=== PATIENT | female | born 1975 | race Caucasian/White ===

== ENCOUNTER 2017-11-12 10:36 | Inpatient (IN) | payer MEDICARE ==
[2017-11-12 11:38] LABS: Mean Corpuscular HGB CONC 29.7 g/dL (32.0-36.0); Mean Corpuscular Hemoglobin 21.4 pg (27.0-31.0); Mean Corpuscular Volume 71.9 fl (81.0-99.0); Mean Platelet Volume 8.3 fL (7.4-10.4); Platelet Count 494 thou/uL (130-400); RBC Distribution Width 18.6 % (11.5-14.5); Red Blood Cell (RBC) Count 4.67 mill/uL (4.20-5.40); White Blood Cell (WBC) Count 8.4 thou/uL (4.8-10.8)
[2017-11-12 11:57] LABS: #Basophils 0.1 thou/uL (0.0-0.2); #Eosinphils 0.2 thou/uL (0.0-0.7); #Monocytes 0.3 thou/uL (0.11-0.59); #Neutrophils 5.8 thou/uL (1.40-6.50); %Basophils 0.7 % (0.0-1.0); %Eosinophils 2.6 % (0.0-10.0); %Lymphocytes 23.9 % (21.0-51.0); %Monocytes 3.2 % (0.0-10.0); %Neutrophils 69.6 % (42.0-75.0); Anisocytosis SLIGHT = 6-15 cells (100X) (0-5/hpf); Hypochromia SLIGHT = 6-15 cells (100X) (0-5/hpf); MDiff Complete? YES; Microcytosis SLIGHT = 6-15 cells (100X) (0-5/hpf); PLT Morphology Comment Appears Increased; Polychromasia SLIGHT = 2-3 cells (100X) (0-2/hpf)
[2017-11-12 11:59] LABS: Lactic Acid 1.2 mmol/L (0.5-2.2)
[2017-11-12 12:13] LABS: ALT (SGPT) 13 U/L (8-55); AST (SGOT) 12 U/L (5-34); Albumin 3.5 g/dL (3.5-5.0); Alkaline Phosphatase 100 U/L (40-150); Anion Gap 11 mmol/L (10-20); BUN (Urea Nitrogen) 9 mg/dL (7.0-18.7); Bilirubin, Total Less than 0.2 mg/dL (0.2-1.2); Calc. Creatinine Clearance 0 mL/min (70-130); Calcium 8.3 mg/dL (7.8-10.44); Carbon Dioxide 27 mmol/L (22-29); Chloride 105 mmol/L (98-107); Estimated GFR-MDRD Greater than 90; Globulin 4.1 g/dL (2.4-3.5); Glucose 105 mg/dL (70-105); Potassium 3.2 mmol/L (3.5-5.1); Protein, Total 7.6 g/dL (6.0-8.3); Sodium 140 mmol/L (136-145)
--- NOTE | 2017-11-12 12:14 | RAD ---
RIGHT FEMUR TWO VIEWS: HISTORY: Skin infection and stage III ulcer to the right side of the buttocks. COMPARISON: None. FINDINGS: Two views of the right femur show no evidence of acute fracture or dislocation. No osseous erosions are seen. Diffuse soft tissue swelling is seen. IMPRESSION: No evidence of acute osseous abnormality of the right femur. POS: BENJAMIN
[2017-11-12] MEDS ORDERED: Morphine 4 MG/ML VIAL ONE (12:47)
[2017-11-12] MEDS ORDERED: Bisacodyl 5 MG TAB PO PRN (13:48)
[2017-11-12] MEDS ORDERED: Vancomycin HCl 1 GM in Premix Bag 1 BAG IVPB SCH ×2 (14:00→16:15)
[2017-11-12] MEDS ORDERED: Clindamycin/D5W 600 mg/50 ml Premix Bag ONE (14:16)
--- NOTE | 2017-11-12 14:40 | HP ---
PRIMARY CARE PROVIDER: Vaibhav Jean M.D. CHIEF COMPLAINT: Wound. HISTORY OF PRESENT ILLNESS: Ms. Frank is a pleasant 42-year-old lady who was seen at [facility] on 11/12/2017. She reports that over the last 2 weeks she has had swelling, rednes s, pain and skin breakdown over the posterior aspect of the right thigh. She denies any fevers. She denies any chills. She denies any nausea, vomiting or diarrhea. She came to the emergency room mainly because of skin redness and skin wound. REVIEW OF SYSTEMS: All other systems reviewed and noted to be negative. PAST MEDICAL HISTORY: HIV infection, coronary artery disease, multiple decubitus ulcerations, hypert ension, morbid obesity, moderate persistent asthma, anxiety, and bipolar disorder. PAST SURGICAL HISTORY: Left below knee amputation secondary to osteomyelitis after an accident, cesa rean section x2 and cholecystectomy. ALLERGIES: KEFLEX, IRON, FOLIC ACID, INFLUENZA VACCINE, ACYCLOVIR and VITAMINS. CURRENT MEDICATIONS: Lyrica 100 mg 2 times a day, Atripla 1 tablet daily, ProAir HFA 90 mcg daily, A dvair Diskus 1 puff b.i.d., Prozac 10 mg daily, Flexeril 10 mg daily, [place] p.r.n., aspirin 325 mg da juanito, metoprolol tartrate 50 mg 2 times a day, Plavix 75 mg daily, Lipitor 20 mg daily. FAMILY HISTORY: Significant for cardiac disease on her maternal side. SOCIAL HISTORY: The patient smokes 1 pack of cigarettes a day. She denies alcohol use or recreation al drug use. PHYSICAL EXAMINATION: GENERAL: Ms. Frank is awake and alert, not in acute distress. She is morbidly obese. She is afebril e. Blood pressure is 118/96, pulse is 72, she is breathing at rate of 16, saturating 96% on room air . EYES: No scleral icterus. No conjunctival pallor. ENT: Moist mucosal membranes, no oropharyngeal erythema or exudates. NECK: Supple, nontender, normal range of movement. Trachea is midline. RESPIRATORY: Accessory muscles of breathing are not active. Chest wall movements are symmetric bila terally. LUNGS: Clear to auscultation, without wheeze, rhonchi or crepitations. CARDIOVASCULAR: S1 and S2 are heard, regular. Peripheral pulses palpable. No carotid bruit, no per icardial rub. ABDOMEN: Soft, distended, nontender, bowel sounds heard. NEUROLOGIC: Cranial nerves II-XII intact. MUSCULOSKELETAL: She is status post left BKA. Moving all 4 extremities. SKIN: She has 16 x 8 cm area of erythema, warmth, and induration to posterior aspect of the right up per thigh. There is also a 3 x 2 central unstageable ulcer with tunneling present as well as a small er stage II ulcer. LYMPHATIC: No cervical lymphadenopathy. PSYCHIATRIC: Normal mood, normal affect, patient is oriented to person, place, and time. LABORATORY DATA: Ms. Frank's labs and investigations were reviewed. She had x-ray of the right femur , which did not show any fracture or dislocation. She had diffuse soft tissue swelling on the x-ray. She has normal white count, microcytic anemia with hemoglobin 10, elevated platelet count of 494,00 0, normal sodium decreased potassium of 3.2, normal creatinine and an unremarkable liver profile. La ctic acid is normal. ASSESSMENT AND PLAN: Ms. Frank is a pleasant 42-year-old lady who was seen at [facility] on 11/12/2017. Her problem list includes: 1. Wound infection: Patient will be started on antibiotics and admitted to the hospital. She is re ceiving vancomycin and Zosyn in the emergency room, which I will continue. Infectious Disease servic e will be consulted for help with further management. 2. Hypokalemia: Replace potassium. 3. Human immunodeficiency virus infection: Patient reports that her human immunodeficiency virus in fection is controlled. She will continue her home medications during this hospitalization. 4. Asthma: Stable. 5. Thrombocythemia: Likely reactive to anemia. We will follow platelet counts. Many thanks for allowing me to participate in your patient's care. Please feel free to contact me wi th any questions or concerns. LEVEL OF RISK: Moderate. LEVEL OF COMPLEXITY: Moderate.
[2017-11-12 17:07] VITALS: BMI 51.2
[2017-11-12] MEDS: Acetaminophen 325 MG TAB PO PRN ×2 (17:22→21:11)
[2017-11-12] MEDS: Morphine 4 MG/ML VIAL SLOW IVP PRN ×2 (17:22→23:38)
[2017-11-12] MEDS: Nicotine 21 MG PATCH TD SCH (17:29)
[2017-11-12] MEDS ORDERED: Piperacillin/Tazobactam 4.5 GM in Sodium Chloride 0.9% 100 ML IVPB SCH (18:00)
[2017-11-12] MEDS ORDERED: diphenhydrAMINE 50 MG/ML VIAL ONE (18:33)
--- NOTE | 2017-11-12 19:40 | CON ---
DATE OF CONSULTATION: 11/12/2017 REASON FOR CONSULTATION: Decubitus ulcer and fever, HIV positive patient. HISTORY OF PRESENT ILLNESS: A 42-year-old known to us from multiple previous hospital and clinic visits, who has a longstanding history of HIV seropositive status with excellent compliance with antiretroviral therapy, last saw her in December last year when she came in with cellulitis in the thigh area in the right foot and now she came in because of fever and newly developed tunneling pressure ulceration of the right ischial region, some cough. No headaches, no visual symptoms. No dyspnea or chest pain. No abdominal pain or diarrhea. The left BKA stump amputation site ulcer has completely healed. PAST MEDICAL HISTORY: The medical history includes longstanding HIV infection, well controlled and has not had a CD4 cell count in a while. She has transportation difficulty, but takes her medications with excellent compliance; left BKA following complications of left foot infection with necrotizing features and a chronic ulcer at the tip of the left BKA, which finally healed after extensive management; also decubitus ulcer in the gluteal region which I feel in the past; asthma; benign spinal tumor; UTIs of prior episode of invasive UTI. PAST SURGICAL HISTORY: Cholecystectomy, bipolar disorder and the above surgeries. SOCIAL HISTORY: Positive smoking, still smoking a pack a day, used to live in [place], but has moved to [place], close to family. CURRENT MEDICATIONS: Atripla, Lyrica, ProAir HFA, Advair Diskus, Prozac, Flexeril, [place], aspirin, metoprolol, Plavix, and Lipitor. ALLERGIES: ACYCLOVIR, CEPHALEXIN, FOLIC ACID. FAMILY HISTORY: Currently includes coronary disease. PHYSICAL EXAMINATION: GENERAL: Pleasant as usual. VITAL SIGNS: Temperature 98.7, blood pressure 130/70, pulse 82, respirations 14. SKIN: Shows the tunneling narrow pressure ulceration in the right side of the shoulder region with no erythema. I was able to probe down to about 8 cm. I could not feel any bone at the end of this tunnel. Sample was submitted for cultures from the area. No other skin lesions noticeable except for shallow abrasion distal to this tunneling ulcer. No lymphadenopathy. HEENT: Ocular movements conjugate. Oral cavity moist, quite a few teeth in place with quite a bit of decay and gum disease. NECK: Supple. No jugular vein distention or carotid bruits. LUNGS: With symmetric clear breath sounds. HEART: S1, S2, regular rate. No murmurs. No S3 or S4. ABDOMEN: Soft, not distended or tender. No ascites. No bladder distention. Perineal examination was normal. Vascular supply to the lower extremities appears normal. NEUROLOGIC: Cognitive function appears to be intact. She moves all extremities with no limitations. LABORATORY: White cell count 8.4, hemoglobin 10, platelets 494 with a normal differential. Sodium 140, potassium of 3.2, creatinine 0.67. Liver profile normal. Albumin 3.5. The gluteal region culture with positive cocci in pairs, negative rods and gram-positive rods. ASSESSMENT: 1. Longstanding human immunodeficiency virus infection with previous excellent adherence to antiretroviral therapy specifically Atripla. 2. Multiple prior episodes of decubitus ulcerations related to her mobility limitation now with a new one in the right ischial region, which is tunneling. DISCUSSION: I could not palpate any bone. No cellulitis is present, but she has had fever, but will go ahead and stage this ulcer with an MRI of the pelvis. She may require just wound care. If there is osteomyelitis and may have to consult Surgery for debridement, broad-spectrum antimicrobial therapy which would have to be administered for a longer period of time. Recheck CD4 cell count and viral load to restage her HIV infection. DANO
[2017-11-12] MEDS ORDERED: diphenhydrAMINE 25 MG CAP PO PRN (20:53)
[2017-11-12] MEDS ORDERED: PROVENTIL INHALER 6.7 G (200 INHALATIONS) INH PRN (20:58)
[2017-11-12] MEDS ORDERED: Cyclobenzaprine 10 MG TAB PO PRN (20:59)
[2017-11-12] MEDS ORDERED: Lorazepam 1 MG TAB PO PRN (21:00)
[2017-11-12] MEDS ORDERED: Lidocaine 2% Jelly 5 ML TUBE TOP PRN (21:01)
[2017-11-12] MEDS ORDERED: Mometasone/Formoterol 120 PUFF INHALER INH PRN (21:02)
[2017-11-12] MEDS: Atorvastatin Calcium 40 MG TAB PO SCH (21:07)
[2017-11-12] MEDS: Pregabalin 50 MG CAP PO SCH (21:10)
[2017-11-12] MEDS ORDERED: EMTRICITABINE PO SCH (21:30)
[2017-11-12] MEDS ORDERED: EFAVIRENZ PO SCH (21:30)
[2017-11-12] MEDS ORDERED: TENOFOVIR PO SCH (21:30)
[2017-11-13 06:04] LABS: Anion Gap 10 mmol/L (10-20); BUN (Urea Nitrogen) 5 mg/dL (7.0-18.7); Calc. Creatinine Clearance 237 mL/min (70-130); Calcium 7.8 mg/dL (7.8-10.44); Carbon Dioxide 25 mmol/L (22-29); Chloride 106 mmol/L (98-107); Estimated GFR-MDRD Greater than 90; Glucose 119 mg/dL (70-105); Potassium 3.1 mmol/L (3.5-5.1); Sodium 138 mmol/L (136-145)
[2017-11-13 06:07] LABS: Band 15 % (5-11); Eosinophils 3 % (0-10); Hemoglobin 9.6 g/dL (12.0-16.0); Lymphocytes 9 % (21-51); MDiff Complete? YES; Mean Corpuscular HGB CONC 30.2 g/dL (32.0-36.0); Mean Corpuscular Hemoglobin 21.6 pg (27.0-31.0); Mean Corpuscular Volume 71.7 fl (81.0-99.0); Mean Platelet Volume 8.7 fL (7.4-10.4); Monocytes 1 % (0-10); Neutrophil 72 % (42-75); PLT Morphology Comment Appears Increased; Platelet Count 452 thou/uL (130-400); RBC Distribution Width 18.8 % (11.5-14.5); Red Blood Cell (RBC) Count 4.41 mill/uL (4.20-5.40); White Blood Cell (WBC) Count 10.3 thou/uL (4.8-10.8)
[2017-11-13] MEDS: Pregabalin 50 MG CAP PO SCH ×2 (08:12→21:47)
[2017-11-13] MEDS: Acetaminophen/Codeine 30-300mg Tablet PO PRN (08:13)
[2017-11-13] MEDS: Clopidogrel Bisulfate 75 MG TAB PO SCH (08:14)
[2017-11-13] MEDS: FLUoxetine HCl 20 MG CAP PO SCH (08:14)
[2017-11-13] MEDS: Metoprolol Tartrate 25 MG TAB PO SCH (08:15)
[2017-11-13] MEDS: Enoxaparin Sodium 40 MG/0.4 ML SYRINGE SC SCH (08:15)
[2017-11-13] MEDS: Aspirin 325 MG TAB PO SCH (08:15)
[2017-11-13] MEDS ORDERED: Prevnar 13-Val Conj/PF 0.5 ML SYRINGE IM ONE (09:00)
[2017-11-13] MEDS: Ketorolac Tromethamine 30 MG/ML VIAL IVP SCH ×3 (11:11→23:30)
[2017-11-13] MEDS: Potassium Chloride 20 MEQ TAB PO SCH ×2 (11:12→17:36)
--- NOTE | 2017-11-13 11:46 | PDOC.PN ---
- Subjective Encounter Start Date: 11/13/17 Encounter Start Time: 08:40 Pt seen for followup re: wound infection.; Denies chest pain, shortness of breath, fevers or chills. - Objective MAR Reviewed: Yes Vital Signs & Weight: Vital Signs (12 hours) Temp Pulse Resp BP Pulse Ox 11/13/17 08:17 98 F 100 16 95 11/13/17 07:36 98 F 100 16 118/71 95 11/13/17 03:59 98.7 F 102 H 18 95/57 L 94 L 11/12/17 23:56 98.7 F 111 H 18 105/64 93 L I&O: 11/12/17 11/13/17 11/14/17 06:59 06:59 06:59 Intake Total 510 Balance 510 Result Diagrams: 11/13/17 05:21 11/13/17 05:21 Phys Exam - Physical Examination Morbid obesity HEENT: moist MMs, sclera anicteric, oral pharynx no lesions, 2+ tonsils Neck: no nodes, no JVD, supple, full ROM Respiratory: no wheezing, no rales, no rhonchi, clear to auscultation bilateral Cardiovascular: RRR, no rub S1, S2 Gastrointestinal: soft, non-tender, positive bowel sounds distention s/p L BKA Neurological: moves all 4 limbs Psychiatric: normal affect, A&O x 3 Deviation from normal: posterior R thigh wound Dx/Plan (1) Wound infection Code(s): T14.8XXA - OTHER INJURY OF UNSPECIFIED BODY REGION, INITIAL ENCOUNTER; L08.9 - LOCAL INFECTION OF THE SKIN AND SUBCUTANEOUS TISSUE, UNSP Status: Acute Comment: pt to have MRI to evaluate (2) Asthma Code(s): J45.909 - UNSPECIFIED ASTHMA, UNCOMPLICATED Status: Chronic Qualifiers: Asthma severity: mild intermittent Comment: stable (3) Dyslipidemia Code(s): E78.5 - HYPERLIPIDEMIA, UNSPECIFIED Status: Chronic Comment: stable (4) HIV (human immunodeficiency virus infection) Status: Chronic Comment: stable (5) Tobacco abuse Code(s): Z72.0 - TOBACCO USE Status: Chronic Comment: counseled re: tobacco cessation, pt is on nicotine replacement therapy (6) Morbid obesity with BMI of 50.0-59.9, adult Code(s): E66.01 - MORBID (SEVERE) OBESITY DUE TO EXCESS CALORIES; Z68.43 - BODY MASS INDEX (BMI) 50-59.9 , ADULT Status: Chronic - Plan * . Review of Systems - Review of Systems Respiratory: negative: Cough, Shortness of Breath, SOB with Excertion, Pleuritic Pain, Wheezing Cardiovascular: negative: chest pain, palpitations, orthopnea, paroxysmal nocturnal dyspnea, edema, light headedness Gastrointestinal: negative: Nausea, Vomiting, Abdominal Pain, Diarrhea, Constipation, Melena, Hematochezia Genitourinary: Incontinence. negative: Dysuria, Frequency, Hematuria, Retention Skin: negative: Rash, Lesions, Markie, Bruising - Medications/Allergies Allergies/Adverse Reactions: Allergies Allergy/AdvReac Type Severity Reaction Status Date / Time piperacillin [From Zosyn] Allergy Intermediate Verified 11/12/17 19:22 tazobactam [From Zosyn] Allergy Intermediate Verified 11/12/17 19:22 acyclovir Allergy Mild Verified 12/22/14 04:26 cephalexin monohydrate Allergy Mild Verified 12/22/14 04:26 [From Keflex] ferrous fumarate Allergy Mild Verified 12/22/14 04:26 [From 1 + Iron] folic acid Allergy Mild Verified 12/22/14 04:26 [From 1 + Iron] influenza virus vaccine, Allergy Mild Verified 12/22/14 04:26 specific [Influenza Virus Vacc,Specific] vit,tx Allergy Mild Verified 12/22/14 04:26 calc,iron,folic acd [From 1 + Iron] vitamins with Allergy Mild Verified 12/22/14 04:26 calcium [From 1 + Iron] Medications: Current Medications Acetaminophen (Tylenol) 650 mg PO Q4H PRN PRN Reason: Headache/Fever or Pain Last Admin: 11/12/17 21:11 Dose: 650 mg Acetaminophen/Codeine Phosphate (Tylenol #3) 2 tab PO BIDPRN PRN PRN Reason: Pain Last Admin: 11/13/17 08:13 Dose: 2 tab Albuterol Sulfate (Proventil Hfa) 2 puff INH Q6H PRN PRN Reason: SOB &/or Wheezing Aspirin (Aspirin) 325 mg PO DAILY [facility] Last Admin: 11/13/17 08:15 Dose: 325 mg Atorvastatin Calcium (Lipitor) 40 mg PO HS [facility] Last Admin: 11/12/17 21:07 Dose: Not Given Bisacodyl (Dulcolax) 10 mg PO DAILYPRN PRN PRN Reason: Constipation Clopidogrel Bisulfate (Plavix) 75 mg PO DAILY [facility] Last Admin: 11/13/17 08:14 Dose: 75 mg Cyclobenzaprine HCl (Flexeril) 5 mg PO BIDPRN PRN PRN Reason: Muscle Spasm Diphenhydramine HCl (Benadryl) 25 mg PO Q6H PRN PRN Reason: Itching Enoxaparin Sodium (Lovenox) 40 mg SC 0900 [facility] Last Admin: 11/13/17 08:15 Dose: Not Given Fluoxetine HCl (Prozac) 20 mg PO DAILY [facility] Last Admin: 11/13/17 08:14 Dose: 20 mg Ketorolac Tromethamine (Toradol) 15 mg IVP Q6HR [facility] Stop: 11/18/17 12:01 Last Admin: 11/13/17 11:11 Dose: 15 mg Lidocaine HCl (Xylocaine 2%) 0 ml TOP ASDIR PRN PRN Reason: Topical Irritations Lorazepam (Ativan) 1 mg PO BIDPRN PRN PRN Reason: Anxiety Metoprolol Tartrate (Lopressor) 25 mg PO DAILY [facility] Last Admin: 11/13/17 08:15 Dose: 25 mg Mometasone Furoate/Formoterol Fumar (Dulera 100 Mcg/5 Mcg Inhaler) 2 puff INH DAILYPRN PRN PRN Reason: . Morphine Sulfate (Morphine) 2 mg SLOW IVP Q6H PRN PRN Reason: Severe Pain (7-10) Last Admin: 11/12/17 23:38 Dose: 2 mg Nicotine (Nicoderm Patch) 21 mg TD Q24HR [facility] Last Admin: 11/12/17 17:29 Dose: 21 mg Efavirenz, Emtricitabine, Tenofovir [Atripla] Tablet 0 each PO HS [facility] Potassium Chloride (K-Dur) 40 meq PO Q6H [facility] Stop: 11/13/17 16:31 Last Admin: 11/13/17 11:12 Dose: 40 meq Pregabalin (Lyrica) 200 mg PO BID [facility] Last Admin: 11/13/17 08:12 Dose: 200 mg Sodium Chloride (Flush - Normal Saline) 10 ml IVF Q12HR [facility] Last Admin: 11/13/17 08:14 Dose: 10 ml Sodium Chloride (Flush - Normal Saline) 10 ml IVF PRN PRN PRN Reason: Saline Flush
[2017-11-13] MEDS: Nicotine 21 MG PATCH TD SCH (13:59)
[2017-11-13] MEDS: Morphine 4 MG/ML VIAL SLOW IVP PRN ×2 (13:59→21:47)
--- NOTE | 2017-11-13 15:52 | MRI ---
MRI PELVIS WITH AND WITHOUT CONTRAST 11/13/17 HISTORY: Stage IV decubitus ulcer fight ischial area. COMPARISON: Radiograph prior day as well as pelvic MRI from 2009. FINDINGS: BONES: There is complete erosion of the coccyx. There is erosions of the sacrum at S4 and S5 which is comple tely eroded. There is a sacral decubitus ulcer extending to the sacrum with only low grade periosteal reactive edema. No loss of signal on the T1 weighted sequence. There is also a large ulcer over the right ischium extending to the circumferential investing fascia with mild fascial thickening. There i s also edema and thickening of the medial fascia of the thigh on the right. No deep fascial thickenin g or edema. There is extensive muscular atrophy. There is complete atrophy of the gluteus muscles. There is atrop hy of the hamstring muscles. No loss of normal T1 signal on the T1 weighted sequence. IMPRESSION: 1. Large sacral decubitus ulcer with chronic complete erosion of the coccyx with little erosion of S4 and S5. This is chronic in nature and there is no evidence of acute osteomyelitis. 2. Large soft tissue defect of the right ischium without underlying osteomyelitis. There is mode rate right superficial fasciitis. No deep fasciitis. The defect has a gas filled sinus tract without drainage fluid collection. POS: OFF
[2017-11-13] MEDS ORDERED: cefTRIAXone\\ROCEPHIN 1 GM in Sodium Chloride 0.9% 100 ML IVPB SCH (16:30)
--- NOTE | 2017-11-13 16:50 | PRG ---
DATE OF SERVICE: 11/13/2017 SUBJECTIVE: Still having pain at the ischial site. No respiratory symptoms. No abdominal pain, no diarrhea. Voiding without difficulty. OBJECTIVE: VITAL SIGNS: Normal. CARDIOVASCULAR: S1 and S2, regular rate. LUNGS: Clear. ABDOMEN: Soft. The wound site is about the same. LABORATORY DATA: White cell count 10.3, hemoglobin 9.6, platelets 452. Chemistry is normal except f or low potassium. Culture from the ischial ulcer showed Proteus mirabilis and alpha-hemolytic strep. MRI showed the previous areas of destruction of the sacrum-coccygeal area, which had been treated a few years ago. That area of skin has healed completely. The right side of the ischial lesion has n o bone involvement. There is a little bit of fasciitis, which is superficial, but no abscess. The C D4 cell count and viral load are pending. ASSESSMENT AND DISCUSSION: Right ischial pressure ulceration without evidence of osteomyelitis, only superficial fasciitis. Await on culture results. Continue Rocephin. We will start Rocephin and th en transition to oral antimicrobial therapy either a third-generation cephalosporin or Augmentin plus ciprofloxacin depending on susceptibility results. Continue Atripla and follow up in the clinic.
[2017-11-13] MEDS: cefTRIAXone\\ROCEPHIN 1 GM, Syringe 0.4 ML in Sterile Water 9.6 ML SLOW IVP SCH (18:03)
[2017-11-13] MEDS: Atorvastatin Calcium 40 MG TAB PO SCH (21:48)
[2017-11-13] MEDS: TENOFOVIR PO SCH (21:49)
[2017-11-13] MEDS: EMTRICITABINE PO SCH (21:49)
[2017-11-13] MEDS: EFAVIRENZ PO SCH (21:49)
--- NOTE | 2017-11-14 03:21 | CON ---
DATE OF CONSULTATION: 11/13/2017 REASON FOR CONSULTATION: Decubitus ulcer. HISTORY: Ms. Frank is a 42-year-old woman with HIV, morbid obesity, and multiple decubitus wounds. S he came to the hospital because of increased tunneling at a right ischial decubitus ulcer. She state s that she has had a sore there for some time, but has just been placing ABD dressings to it. She rapp s noticed some drainage, but did not realize that there was any tunneling until her daughter came to check on her and noted that the wound extended for quite some distance under the surface of the skin. She denies any fevers or chills. She is fairly independent, although she does not ambulate. She h as had a below-knee amputation on the left due to osteomyelitis and does not have a prosthesis, but s he is able to transfer to her wheelchair and perform her activities of daily living. PAST MEDICAL HISTORY: HIV, which is controlled, she is compliant with her treatments and follows up with Dr. Brown; coronary artery disease; hypertension; morbid obesity; asthma; anxiety; and bipolar d isorder. PAST SURGICAL HISTORY: Cholecystectomy, , left below-knee amputation. ALLERGIES: She reports allergies to KEFLEX, IRON, FOLATE, FLU VACCINE, ACYCLOVIR, AND VITAM INS. FAMILY HISTORY: Heart disease. SOCIAL HISTORY: The patient does smoke, but does not use alcohol or illicit drugs. REVIEW OF SYSTEMS: Ten-system review of systems is negative except per HPI and the following. The p atient does report that she is somewhat short of breath and has not received her inhalers in the hosp ital. PHYSICAL EXAMINATION: VITAL SIGNS: The patient is afebrile. O2 sats are in the 90s on room air, heart rate in the 70s, re spirations 14-20, blood pressure low normal. GENERAL: Reveals a pleasant morbidly obese woman with a BMI of 51. She is able to turn independentl y in the bed and is in no acute distress. She is not flushed or toxic in appearance. She is not jau ndiced or icteric. HEENT: Unremarkable. NECK: Supple. She does not have any lymphadenopathy or thyroid nodules that I can appreciate. HEART: Regular in its rate and rhythm. LUNGS: She has diffuse expiratory greater than inspiratory wheezes bilaterally, but no crackles. ABDOMEN: Soft, nontender, and nondistended. EXTREMITIES: Warm and well perfused. Her BKA stump is well healed. She has a healed sacral decubit us ulcer with a rather deep crevice, but the skin appears to be intact. She has a right ischial decu bitus ulcer, which tunnels for approximately 6 cm under the skin. I do not feel any bone in the base of the wound, and the wound appears to be clean and granulating. NEUROLOGIC: No focal deficits. PSYCHIATRIC: Alert, oriented, and appropriate. LABORATORY DATA: White count is normal at 10.3, hematocrit is low at 31, platelets are 452. Electro lytes are unremarkable except for a slightly low potassium of 3.1. Albumin is normal at 3.5. ASSESSMENT: Chronic right ischial decubitus ulcer. Dr. Brown has ordered an MRI, which has not yet been performed right at the time that I saw the patient. I will review this result when it is availa ble; however, at this point, I doubt there is any indication for a surgical debridement since there i s not any palpable bone in the base of the wound. Even if she does have osteo, the treatment for thi s would likely be conservative with wound care and dressing changes. The wound care team has been pl acing Promogran and a silver-based dressing, and I think this is appropriate. If she does not exhibi t progress with this dressing change, then a VAC dressing would be indicated. Thanks very much for this consult. I will continue to follow her as an inpatient.
[2017-11-14 05:47] LABS: #Eosinphils 0.2 thou/uL (0.0-0.7); #Lymphocytes 1.4 thou/uL (1.20-3.40); #Monocytes 0.2 thou/uL (0.11-0.59); #Neutrophils 3.7 thou/uL (1.40-6.50); %Basophils 0.3 % (0.0-1.0); %Eosinophils 4.2 % (0.0-10.0); %Lymphocytes 25.8 % (21.0-51.0); %Monocytes 3.9 % (0.0-10.0); %Neutrophils 65.8 % (42.0-75.0); Hemoglobin 9.2 g/dL (12.0-16.0); Mean Corpuscular HGB CONC 27.9 g/dL (32.0-36.0); Mean Corpuscular Hemoglobin 20.4 pg (27.0-31.0); Mean Corpuscular Volume 73.1 fl (81.0-99.0); Mean Platelet Volume 8.3 fL (7.4-10.4); Platelet Count 440 thou/uL (130-400); RBC Distribution Width 18.7 % (11.5-14.5); White Blood Cell (WBC) Count 5.6 thou/uL (4.8-10.8)
[2017-11-14 05:59] LABS: Anion Gap 12 mmol/L (10-20); BUN (Urea Nitrogen) 9 mg/dL (7.0-18.7); Calc. Creatinine Clearance 223 mL/min (70-130); Carbon Dioxide 23 mmol/L (22-29); Chloride 108 mmol/L (98-107); Estimated GFR-MDRD Greater than 90; Glucose 91 mg/dL (70-105); Potassium 3.9 mmol/L (3.5-5.1); Sodium 139 mmol/L (136-145)
[2017-11-14] MEDS: Ketorolac Tromethamine 30 MG/ML VIAL IVP SCH ×3 (06:08→18:39)
[2017-11-14] MEDS: Pregabalin 50 MG CAP PO SCH ×2 (08:32→21:18)
[2017-11-14] MEDS: Clopidogrel Bisulfate 75 MG TAB PO SCH (08:34)
[2017-11-14] MEDS: Aspirin 325 MG TAB PO SCH (08:35)
[2017-11-14] MEDS: Enoxaparin Sodium 40 MG/0.4 ML SYRINGE SC SCH (08:35)
[2017-11-14] MEDS: Metoprolol Tartrate 25 MG TAB PO SCH (08:35)
[2017-11-14] MEDS: FLUoxetine HCl 20 MG CAP PO SCH (08:35)
[2017-11-14] MEDS: Morphine 4 MG/ML VIAL SLOW IVP PRN (11:51)
--- NOTE | 2017-11-14 12:36 | PDOC.PN ---
- Subjective Encounter Start Date: 11/14/17 Encounter Start Time: 08:40 Pt seen for followup re: wound infection. Denies fevers or chills. No nausea, vomiting or diarrhea. - Objective Vital Signs & Weight: Vital Signs (12 hours) Temp Pulse Resp BP Pulse Ox 11/14/17 11:47 97.6 F 91 20 124/75 93 L 11/14/17 08:30 97.6 F 85 18 11/14/17 07:38 97.6 F 85 18 135/81 100 11/14/17 04:00 97.7 F 86 20 110/72 95 Weight Admit Weight 280 lb Weight 280 lb I&O: 11/13/17 11/14/17 11/15/17 06:59 06:59 06:59 Intake Total 510 Balance 510 Result Diagrams: 11/14/17 04:50 11/14/17 04:50 Phys Exam - Physical Examination Morbid obesity HEENT: moist MMs, sclera anicteric, oral pharynx no lesions, 2+ tonsils Neck: no nodes, no JVD, supple, full ROM Respiratory: no wheezing, no rales, no rhonchi, clear to auscultation bilateral Cardiovascular: RRR, no rub S1, S2 Gastrointestinal: soft, non-tender, positive bowel sounds distention Musculoskeletal: edema present s/p L BKA Neurological: moves all 4 limbs Psychiatric: normal affect, A&O x 3 Dx/Plan (1) Wound infection Code(s): T14.8XXA - OTHER INJURY OF UNSPECIFIED BODY REGION, INITIAL ENCOUNTER; L08.9 - LOCAL INFECTION OF THE SKIN AND SUBCUTANEOUS TISSUE, UNSP Status: Acute Comment: MRI result noted, no osteomyelitis, continue ceftriaxone (2) Asthma Code(s): J45.909 - UNSPECIFIED ASTHMA, UNCOMPLICATED Status: Chronic Qualifiers: Asthma severity: mild intermittent Comment: stable (3) Dyslipidemia Code(s): E78.5 - HYPERLIPIDEMIA, UNSPECIFIED Status: Chronic Comment: stable (4) HIV (human immunodeficiency virus infection) Status: Chronic Comment: stable (5) Tobacco abuse Code(s): Z72.0 - TOBACCO USE Status: Chronic Comment: continue nicotine replacement therapy (6) Morbid obesity with BMI of 50.0-59.9, adult Code(s): E66.01 - [place] (SEVERE) OBESITY DUE TO EXCESS CALORIES; Z68.43 - BODY MASS INDEX (BMI) 50-59.9 , ADULT Status: Chronic - Plan * . Review of Systems - Review of Systems Constitutional: negative: fever, chills, sweats, weakness, malaise Respiratory: negative: Cough, Shortness of Breath, SOB with Excertion, Pleuritic Pain, Wheezing Genitourinary: negative: Dysuria, Frequency, Incontinence, Hematuria, Retention Musculoskeletal: negative: Neck Pain, Shoulder Pain, Arm Pain, Back Pain, Hand Pain, Leg Pain, Foot Pain Skin: Rash. negative: Lesions, Markie, Bruising Neurological: negative: Weakness, Numbness, Incoordination, Change in Speech, Confusion, Seizures - Medications/Allergies Allergies/Adverse Reactions: Allergies Allergy/AdvReac Type Severity Reaction Status Date / Time piperacillin [From Zosyn] Allergy Intermediate Verified 11/12/17 19:22 tazobactam [From Zosyn] Allergy Intermediate Verified 11/12/17 19:22 acyclovir Allergy Mild Verified 12/22/14 04:26 cephalexin monohydrate Allergy Mild Verified 12/22/14 04:26 [From Keflex] ferrous fumarate Allergy Mild Verified 12/22/14 04:26 [From 1 + Iron] folic acid Allergy Mild Verified 12/22/14 04:26 [From 1 + Iron] influenza virus vaccine, Allergy Mild Verified 12/22/14 04:26 specific [Influenza Virus Vacc,Specific] vit,tx Allergy Mild Verified 12/22/14 04:26 calc,iron,folic acd [From 1 + Iron] vitamins with Allergy Mild Verified 12/22/14 04:26 calcium [From 1 + Iron] Medications: Current Medications Acetaminophen (Tylenol) 650 mg PO Q4H PRN PRN Reason: Headache/Fever or Pain Last Admin: 11/12/17 21:11 Dose: 650 mg Acetaminophen/Codeine Phosphate (Tylenol #3) 2 tab PO BIDPRN PRN PRN Reason: Pain Last Admin: 11/13/17 08:13 Dose: 2 tab Albuterol Sulfate (Proventil Hfa) 2 puff INH Q6H PRN PRN Reason: SOB &/or Wheezing Last Admin: 11/13/17 16:23 Dose: 2 puff Aspirin (Aspirin) 325 mg PO DAILY CAROL Last Admin: 11/14/17 08:35 Dose: 325 mg Atorvastatin Calcium (Lipitor) 40 mg PO HS [facility] Last Admin: 11/13/17 21:48 Dose: 40 mg Bisacodyl (Dulcolax) 10 mg PO DAILYPRN PRN PRN Reason: Constipation Clopidogrel Bisulfate (Plavix) 75 mg PO DAILY [facility] Last Admin: 11/14/17 08:34 Dose: 75 mg Cyclobenzaprine HCl (Flexeril) 5 mg PO BIDPRN PRN PRN Reason: Muscle Spasm Diphenhydramine HCl (Benadryl) 25 mg PO Q6H PRN PRN Reason: Itching Enoxaparin Sodium (Lovenox) 40 mg SC 0900 [facility] Last Admin: 11/14/17 08:35 Dose: Not Given Fluoxetine HCl (Prozac) 20 mg PO DAILY [facility] Last Admin: 11/14/17 08:35 Dose: 20 mg Ceftriaxone Sodium 1 gm/ (Syringe 0.4 ml/ Sterile Water) 10 mls @ 120 mls/hr SLOW IVP Q24HR@1700 [facility] Last Admin: 11/13/17 18:03 Dose: 10 mls Ketorolac Tromethamine (Toradol) 15 mg IVP Q6HR [facility] Stop: 11/18/17 12:01 Last Admin: 11/14/17 11:50 Dose: 15 mg Lidocaine HCl (Xylocaine 2%) 0 ml TOP ASDIR PRN PRN Reason: Topical Irritations Lorazepam (Ativan) 1 mg PO BIDPRN PRN PRN Reason: Anxiety Metoprolol Tartrate (Lopressor) 25 mg PO DAILY [facility] Last Admin: 11/14/17 08:35 Dose: 25 mg Mometasone Furoate/Formoterol Fumar (Dulera 100 Mcg/5 Mcg Inhaler) 2 puff INH DAILYPRN PRN PRN Reason: . Last Admin: 11/13/17 16:26 Dose: 2 puff Morphine Sulfate (Morphine) 2 mg SLOW IVP Q6H PRN PRN Reason: Severe Pain (7-10) Last Admin: 11/14/17 11:51 Dose: 2 mg Nicotine (Nicoderm Patch) 21 mg TD Q24HR [facility] Last Admin: 11/13/17 13:59 Dose: 21 mg Efavirenz, Emtricitabine, Tenofovir [Atripla] Tablet 0 each PO HS CAROL Last Admin: 11/13/17 21:49 Dose: 1 each Pregabalin (Lyrica) 200 mg PO BID CAROL Last Admin: 11/14/17 08:32 Dose: 200 mg Sodium Chloride (Flush - Normal Saline) 10 ml IVF Q12HR [facility] Last Admin: 11/14/17 08:35 Dose: 10 ml Sodium Chloride (Flush - Normal Saline) 10 ml IVF PRN PRN PRN Reason: Saline Flush Last Admin: 11/14/17 06:09 Dose: 10 ml
[2017-11-14 14:24] LABS: %CD4 (Helper/Inducer) 51.5 % (30.8-58.5); Absolute CD4 721 /uL (359-1519); Lymphocytes/Gated Cell Count 1.4 x10E3/uL (0.7-3.1); Total Lymphocyte 30 % (Not Estab.); WBC Total Count 4.6 x10E3/uL (3.4-10.8)
[2017-11-14] MEDS: Nicotine 21 MG PATCH TD SCH (15:02)
[2017-11-14] MEDS: cefTRIAXone\\ROCEPHIN 1 GM, Syringe 0.4 ML in Sterile Water 9.6 ML SLOW IVP SCH (16:52)
[2017-11-14] MEDS: Acetaminophen/Codeine 30-300mg Tablet PO PRN (16:52)
--- NOTE | 2017-11-14 16:56 | PDOC.GSPN ---
Surgery Progress Note: Subj - Subjective Narrative: MRI didn't show any osteomyelitis and clinically there is no exposed bone in the base of the wound. I recommend continuing with wound care as is currently being administered, either by home health or by a family member. She can follow up in the wound care clinic in a few weeks or in my office. I will sign off for now since the patient doesn't require any surgical debridement. Surgery Progress Note: Obj - Vital signs Vital signs: Vital Signs - Most Recent Temp Pulse Resp BP Pulse Ox 97.9 F 89 18 125/76 99 11/14/17 15:05 11/14/17 15:05 11/14/17 15:05 11/14/17 15:05 11/14/17 15:05 Surgery Progress Note: Results - Labs Result Diagrams: 11/14/17 04:50 11/14/17 04:50 Lab results: Laboratory Results - last 24 hr 11/12/17 11/14/17 11/14/17 18:41 04:50 04:50 WBC 5.6 RBC 4.50 Hgb 9.2 L Hct 32.9 L MCV 73.1 L MCH 20.4 L MCHC 27.9 L RDW 18.7 H Plt Count 440 H MPV 8.3 Neutrophils % 65.8 Neutrophils % (Manual) Not Reportable Lymphocytes % 25.8 Monocytes % 3.9 Eosinophils % 4.2 Basophils % 0.3 Neutrophils # 3.7 Lymphocytes # 1.4 Monocytes # 0.2 Eosinophils # 0.2 Basophils # 0.0 Nucleated RBCs TNP Sodium 139 Potassium 3.9 Chloride 108 H Carbon Dioxide 23 Anion Gap 12 BUN 9 Creatinine 0.66 Estimated GFR (MDRD) Greater than 90 Glucose 91 Calcium 8.0 Total Lymphs/Cells Gated 1.4 Total WBC 4.6 Total Lymphocytes 30 % T-[place]/Inducer 51.5 Absolute CD4 Count 721
[2017-11-14] MEDS: Atorvastatin Calcium 40 MG TAB PO SCH (21:18)
[2017-11-14] MEDS: TENOFOVIR PO SCH (21:32)
[2017-11-14] MEDS: EMTRICITABINE PO SCH (21:32)
[2017-11-14] MEDS: EFAVIRENZ PO SCH (21:32)
[2017-11-15] MEDS: Ketorolac Tromethamine 30 MG/ML VIAL IVP SCH ×3 (00:28→11:39)
[2017-11-15 06:04] LABS: #Eosinphils 0.4 thou/uL (0.0-0.7); #Lymphocytes 1.5 thou/uL (1.20-3.40); #Monocytes 0.2 thou/uL (0.11-0.59); #Neutrophils 4.7 thou/uL (1.40-6.50); %Basophils 0.5 % (0.0-1.0); %Eosinophils 5.4 % (0.0-10.0); %Lymphocytes 21.7 % (21.0-51.0); %Monocytes 3.5 % (0.0-10.0); Hemoglobin 8.5 g/dL (12.0-16.0); Mean Corpuscular HGB CONC 29.8 g/dL (32.0-36.0); Mean Corpuscular Hemoglobin 21.5 pg (27.0-31.0); Mean Corpuscular Volume 72.1 fl (81.0-99.0); Mean Platelet Volume 8.2 fL (7.4-10.4); Platelet Count 440 thou/uL (130-400); RBC Distribution Width 18.6 % (11.5-14.5); Red Blood Cell (RBC) Count 3.97 mill/uL (4.20-5.40); White Blood Cell (WBC) Count 6.8 thou/uL (4.8-10.8)
[2017-11-15 06:25] LABS: Anion Gap 9 mmol/L (10-20); BUN (Urea Nitrogen) 10 mg/dL (7.0-18.7); Calc. Creatinine Clearance 249 mL/min (70-130); Carbon Dioxide 25 mmol/L (22-29); Chloride 108 mmol/L (98-107); Estimated GFR-MDRD Greater than 90; Glucose 85 mg/dL (70-105); Potassium 4.1 mmol/L (3.5-5.1); Sodium 138 mmol/L (136-145)
[2017-11-15] MEDS: FLUoxetine HCl 20 MG CAP PO SCH (08:44)
[2017-11-15] MEDS: Clopidogrel Bisulfate 75 MG TAB PO SCH (08:44)
[2017-11-15] MEDS: Aspirin 325 MG TAB PO SCH (08:44)
[2017-11-15] MEDS: Metoprolol Tartrate 25 MG TAB PO SCH (08:44)
[2017-11-15] MEDS: Pregabalin 50 MG CAP PO SCH (08:45)
[2017-11-15] MEDS: Acetaminophen/Codeine 30-300mg Tablet PO PRN ×2 (08:46→15:20)
[2017-11-15] MEDS: Enoxaparin Sodium 40 MG/0.4 ML SYRINGE SC SCH (09:54)
[2017-11-15] MEDS: Morphine 4 MG/ML VIAL SLOW IVP PRN (11:40)
[2017-11-15 15:10] VITALS: BP 116/70; TEMP 98
[2017-11-15] MEDS: Nicotine 21 MG PATCH TD SCH (15:21)
--- NOTE | 2017-11-15 15:52 | DIS ---
DATE OF ADMISSION: 11/12/2017 DATE OF DISCHARGE: 11/15/2017 PRIMARY CARE PROVIDER: Dr. Vaibhav Jean. DISCHARGE DIAGNOSIS: Wound infection. CONDITION OF PATIENT ON THE DAY OF DISCHARGE: Stable. I assessed Ms. Frank on the day of discharge. She denies any chest pain or shortness of breath. She denies any fevers. Vital signs are stable. S1 and S2 are heard, regular. Lungs are clear to auscultation bilaterally. DISCHARGE MEDICATIONS: She is being discharged home on Augmentin 875 mg 2 times a day for 1 week. O therwise, no change was made to her preadmission home medications as dictated on history and physical note on 11/12/2017. CONSULTATIONS DURING THIS HOSPITALIZATION: General surgery, Dr. Owens, and Infectious Diseases, Dr Jamal Brown. PERTINENT INVESTIGATIONS: MRI of the pelvis on 11/13/2017, which showed a large sacral decubitus ulc er with chronic complete erosion of the coccyx with a little erosion of S4 and S5. This is chronic i n nature and there is no evidence of acute osteomyelitis. She also had large soft tissue defect of t he right ischium without underlying osteomyelitis. She had moderate right superficial fasciitis, no deep fasciitis. The defect has gas filled sinus tract without drainage fluid collection. HOSPITAL COURSE: Ms. Frank is a pleasant 42-year-old lady who was admitted to [facility] on 11/15/2017 for a wound on the upper aspect of the right posterior thigh. She was seen by Infectious Diseases Service. Wound cultures were sent, she also had MRI with results as described above. Wound cultures grew Proteus mirabilis, which was pansensitive, Streptococcus mitis/oralis an d Streptococcus agalactiae group B. Her antibiotics were changed to Augmentin and she is being disch arged home. She is advised to follow up with Infectious Disease service as outpatient. She was also seen by General Surgery Service. MRI did not show any osteomyelitis and clinically ther e was no exposed bone in the base of the wound, therefore General Surgery service recommended continu ing with wound care either by home health or by family member. At the time of this dictation, arrang ements are being made for home health. On the day of discharge, she has white count of 6800, hemoglobin 8.5, platelet count 440,000, sodium 138, potassium 4.1, creatinine 0.59. Her absolute CD4 count was 721, total lymphocyte count was 30, %T-helper/inducer was 51.5. Many thanks for allowing me to participate in your patient's care. Please feel free to contact me wi th any questions or concerns. DISCHARGE DESTINATION: Home. TOTAL AMOUNT OF TIME SPENT COORDINATING THIS DISCHARGE: 33 minutes.
[2017-11-15] MEDS ORDERED: cefTRIAXone\\ROCEPHIN 1 GM in Sodium Chloride 0.9% 100 ML IVPB SCH (17:00)
[2017-11-15 18:11] LABS: HIV-1 Quantitative, RNA PCR <20 copies/mL (.)
--- NOTE | 2017-11-18 11:34 | PQF ---
KUN GARRISON, SHEILA [id number] [facility] A- [id number] CLINICAL DOCUMENTATION CLARIFICATION FORM: POST DISCHARGE Addendum to original discharge summary date: 11/15/2017 DATE: 11/18/2017 ATTN: Dr. Handley Please exercise your independent, professional judgment in responding to the clarification form. Clinical indicators are provided on the bottom of this form for your review Please check appropriate box(s): ____X___ I (concur) with the Wound Care findings as stated below. [ ] Per wound care: Stage IV pressure ulcer right proximal thigh--full thickness. Stage II pressure ulcer right distal thigh--partial thickness. [ ] Pressure Ulcer: (Stage I: Erythema; Stage II: Partial thickness; Stage III : Full thickness; Stage IV: Necrosis to muscle/bone) [ ] Location: POA: [ ] Yes [ ] No[ ] Unable to determine Stage (I to IV): (Left Right Bilateral N/A ) [ ] Location: POA: [ ] Yes [ ] No[ ] Unable to determine Stage (I to IV): (Left Right Bilateral N/A ) [ ] Location: POA: [ ] Yes [ ] No[ ] Unable to determine Stage (I to IV): (Left Right Bilateral N/A ) [ ] No pressure ulcer diagnosis [ ] Deep tissue injury [ ] Other diagnosis (please specify) [ ] Unable to determine In addition, please specify: Present on Admission (POA): [ ] Yes [ ] No [ ] Unable to determine For continuity of documentation, please document condition throughout progress notes and discharge summary. Thank You. CLINICAL INDICATORS - SIGNS / SYMPTOMS / LABS Per H&P: Over the last 2 weeks has had swelling, redness pain and skin breakdown over the posterior aspect of the right thigh. Per wound care notes: Right proximal thigh pressure ulcer. Full thickness. Stage IV. Right distal thigh pressure ulcer partial thickness. Stage II. Per 11/[address] Owens: Increased tunneling at right ischial decubitus ulcer. Per discharge summary: Wound infection. RISK FACTORS: Per H&P: Status post Left BKA. Morbid obesity. Per 11/13 Dr. Owens consultation: Wheelchair used to perform activities of daily living. TREATMENTS: Wound care consult Specialty mattress--[employer]. Wound care/Dressing changes. (This form is maintained as a part of the permanent medical record) 2015 [employer] All Rights Reserved Elsie [email or web address] [phone] DANO
== END 2017-11-15 17:15 | disposition home health service (06) | DRG 592 ==
LOC: ERS 10:36 → SURG A 13:53
PROVIDERS: ADMIT Internal Medicine; ATTEND Internal Medicine
DX: L89.894 Pressure ulcer of other site, stage 4 (principal); Z68.43 Body mass index [BMI] 50.0-59.9, adult; M72.8 Other fibroblastic disorders; Z21 Asymptomatic human immunodeficiency virus [HIV] infection status; J45.909 Unspecified asthma, uncomplicated; F17.210 Nicotine dependence, cigarettes, uncomplicated; E66.01 Morbid (severe) obesity due to excess calories; E78.5 Hyperlipidemia, unspecified; E87.6 Hypokalemia; D69.6 Thrombocytopenia, unspecified; I25.10 Atherosclerotic heart disease of native coronary artery without angina pectoris; B96.4 Proteus (mirabilis) (morganii) as the cause of diseases classified elsewhere; B95.1 Streptococcus, group B, as the cause of diseases classified elsewhere; Z88.1 Allergy status to other antibiotic agents; Z88.8 Allergy status to other drugs, medicaments and biological substances; Z88.7 Allergy status to serum and vaccine; Z79.02 Long term (current) use of antithrombotics/antiplatelets; Z79.82 Long term (current) use of aspirin; Z79.899 Other long term (current) drug therapy; Z89.512 Acquired absence of left leg below knee
CPT/HCPCS: 36415; 72197; 80048; 80053; 83605; 85025; 85048; 86361; 87040; 87070; 87077; 87186; 87205; 87536; 96361; 96365; 96368; 96375; A4216; G8978-GP-CN; G8979-GP-CJ; J0696; J1200; J1650; J1885; J2270; J3370; J3490; J7050

== ENCOUNTER 2019-03-01 14:40 | Inpatient (IN) | payer MEDICARE ==
--- NOTE | 2019-03-01 15:18 | RAD ---
ONE VIEW PELVIS: HISTORY: Right hip pain. CORRELATION: Pelvic MRI 11/13/2017. FINDINGS: There appears to be previous surgery with laminectomy in the distal lumbar spine. Sacroiliac joints are patent and symmetric. Symmetric hip joint spaces. Bony pelvis is intact. Limited evaluation of the sacral alae. Reference made to a pelvic MRI demonstrates a truncated sacrum and coccyx. IMPRESSION: Unremarkable pelvic radiograph. Transcribed Date/Time: 03/01/2019 3:26 PM
[2019-03-01 15:24] LABS: #Eosinphils 0.2 thou/uL (0.0-0.7); #Lymphocytes 2.2 thou/uL (1.20-3.40); #Monocytes 0.4 thou/uL (0.11-0.59); #Neutrophils 4.3 thou/uL (1.40-6.50); %Basophils 0.4 % (0.0-1.0); %Eosinophils 2.9 % (0.0-10.0); %Lymphocytes 31.4 % (21.0-51.0); %Monocytes 4.9 % (0.0-10.0); %Neutrophils 60.3 % (42.0-75.0); Hemoglobin 10.2 g/dL (12.0-16.0); Mean Corpuscular Hemoglobin 22.6 pg (27.0-31.0); Mean Corpuscular Volume 72.8 fL (78.0-98.0); Mean Platelet Volume 9.6 fL (7.4-10.4); Platelet Count 295 thou/uL (130-400); RBC Distribution Width 19.1 % (11.5-14.5); White Blood Cell (WBC) Count 7.1 thou/uL (4.8-10.8)
[2019-03-01 15:37] LABS: Anisocytosis SLIGHT = 6-15 cells (100X) (0-5/hpf); Hypochromia SLIGHT = 6-15 cells (100X) (0-5/hpf); MDiff Complete? YES; Microcytosis SLIGHT = 6-15 cells (100X) (0-5/hpf); Ovalocytes SLIGHT = 2-5 cells (100X) (0-1/hpf); Platelet Morphology Comment Appears Adequate; Polychromasia SLIGHT = 2-3 cells (100X) (0-2/hpf)
[2019-03-01 15:44] LABS: ALT (SGPT) 15 U/L (8-55); AST (SGOT) 12 U/L (5-34); Albumin 3.7 g/dL (3.5-5.0); Alkaline Phosphatase 84 U/L (40-150); Anion Gap 16 mmol/L (10-20); BUN (Urea Nitrogen) 11 mg/dL (7.0-18.7); Bilirubin, Total Less than 0.2 mg/dL (0.2-1.2); Calc. Creatinine Clearance 0 mL/min (70-130); Carbon Dioxide 18 mmol/L (22-29); Chloride 108 mmol/L (98-107); Estimated GFR-MDRD Greater than 90; Globulin 3.6 g/dL (2.4-3.5); Glucose 94 mg/dL (70-105); Potassium 3.1 mmol/L (3.5-5.1); Protein, Total 7.3 g/dL (6.0-8.3); Sodium 139 mmol/L (136-145)
[2019-03-01] MEDS ORDERED: Cefepime 2 GM VIAL ONE (16:15)
[2019-03-01] MEDS ORDERED: Sodium Chloride 0.9% 100 ML ONE (16:16)
[2019-03-01] MEDS ORDERED: Morphine 4 MG/ML VIAL ONE (17:10)
[2019-03-01 19:55] VITALS: BMI 47.4
[2019-03-01] MEDS ORDERED: Acetaminophen 325 MG TAB PO PRN (20:05)
[2019-03-01] MEDS ORDERED: Ondansetron PF 4 MG/2 ML Vial IVP PRN (20:05)
[2019-03-01] MEDS ORDERED: Guaifenesin DM 100-10/5 ML UDCUP PO PRN (20:05)
[2019-03-01] MEDS ORDERED: Senokot S 8.6-50 MG TAB PO PRN (20:05)
[2019-03-01] MEDS ORDERED: Bisacodyl 10 MG SUPP PR PRN (20:05)
[2019-03-01] MEDS ORDERED: Mometasone/Formoterol 120 PUFF INHALER INH PRN (20:05)
[2019-03-01] MEDS ORDERED: Non-Formulary Item 1 EACH (Efavirenz/Emtricitab/Tenofovir [Atripla] 1 TABLET) PO SCH (21:00)
[2019-03-01] MEDS ORDERED: Vancomycin HCl 1 GM in Premix Bag 1 BAG IVPB SCH (21:00)
[2019-03-01] MEDS: Pregabalin 50 MG CAP PO SCH (21:29)
[2019-03-01] MEDS: HYDROcodone/Acetaminophen 5/325 mg Tablet PO PRN (21:30)
[2019-03-01] MEDS: Famotidine 20 MG TAB PO SCH (21:31)
[2019-03-01] MEDS: Cyclobenzaprine 10 MG TAB PO PRN (21:35)
[2019-03-01] MEDS: diphenhydrAMINE 25 MG CAP PO PRN (21:35)
--- NOTE | 2019-03-01 22:04 | HP ---
REASON FOR ADMISSION: Right gluteal abscess, rule out osteomyelitis. HISTORY OF PRESENTING ILLNESS: The patient gives history of having increased yellowish drainage from last 4 to 5 days. She also felt a hole in the right gluteal area. This area gradually got worse to the point that she could insert her pinky finger inside. Her daughter checked on the wound this morning and she saw foul smelling odor and increased drainage, and asked her to go to the ER. She has had subjective fever at home. She is also having headaches from last 3 days. The patient has prior history of left BKA for osteomyelitis in [address] Pinto. 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 She is essentially wheelchair bound. The patient mentions that she has had multiple hospitalizations at [facility] for ulcers on her back. She has had in fact three hospitalizations this year for ulcers on her back and leg area, and has been hospitalized at [facility]. PAST MEDICAL AND SURGICAL HISTORY: History of HIV from last seven years and states she is very compliant. Her last viral load was undetectable. The patient has normal CD4 count and follows up with Dr. Brown per patient. 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 No stents have been placed. Cholecystectomy, left BKA done for osteomyelitis in 2002, x2. History of bipolar disorder. MediPort in the right chest due to poor venous access and multiple hospitalizations. CURRENT MEDICATIONS: The patient is on: 1. Atripla one tablet daily. 2. Plavix 75 mg daily. 3. Lipitor 40 mg daily. 4. Flexeril 5 mg twice daily. 5. Lyrica, which she has not filled her prescription but says she takes 200 mg twice daily. 6. Prozac 40 mg daily. 7. ProAir and Advair inhalers. 8. Motrin p.r.n. for pain. ALLERGIES: THE PATIENT IS ALLERGIC TO MULTIPLE AGENTS INCLUDING ZOSYN, ACYCLOVIR, CEPHALEXIN, FERROUS FUMARATE, FOLIC ACID, INFLUENZA VACCINE, KEFLEX, VITAMIN. PERSONAL HISTORY: Smokes one pack a day. Does not abuse drugs. Drinks alcohol on social occasions. FAMILY HISTORY: Mother is alive. She has history of diabetes and hypertension. Father at the age of 59 years. He has had history of coronary artery disease and stroke. The patient stays with her daughter and son. CODE STATUS: Full. Power of associate attorney is her daughter, Ms. Arrington. Number to reach her is [phone]. REVIEW OF SYSTEMS: CONSTITUTIONAL: Negative for weight loss or gain, ability to conduct usual activities. SKIN: Negative for rash, itching. EYES: Negative for double vision, pain. ENT/MOUTH: Negative for nose bleeding, neck stiffness, pain, tenderness. CARDIOVASCULAR: Negative for palpitations, dyspnea on exertion, orthopnea. RESPIRATORY: Negative for shortness of breath, wheezing, cough, hemoptysis, fever or night sweats. GASTROINTESTINAL: Negative for poor appetite, abdominal pain, heartburn, nausea , vomiting, constipation, or diarrhea. GENITOURINARY: Negative for urgency, frequency, dysuria, nocturia. MUSCULOSKELETAL: Negative for pain, swelling. NEUROLOGIC/PSYCHIATRIC: Negative for anxiety, depression. ALLERGY/IMMUNOLOGIC: Negative for skin rash, bleeding tendency. PHYSICAL EXAMINATION: GENERAL: The patient is a 44-year-old female, who is currently not in any acute distress. VITAL SIGNS: Blood pressure 160/74, pulse 98 per minute, respiratory rate is 20 per minute, temperature 98.4 degrees Fahrenheit, saturating 95% on room air. NECK: Supple. No elevated JVD. HEENT: Eyes; extraocular muscles intact. Pupils reacting to light. Oral cavity, mucous membranes are moist. No exudates or congestion. The patient has poor dentition. CARDIOVASCULAR SYSTEM: S1-S2 heard. Regular rhythm. RESPIRATORY SYSTEM: Air entry 2+ bilateral. Scattered rhonchi plus no rales or wheezes. ABDOMEN: Soft. Bowel sounds heard. No tenderness, rigidity or guarding. EXTREMITIES: The patient has wound dressing done for tunneling ulcer in the right gluteal area. She has a wick placed inside. The patient has left BKA and has right clubfoot, has edema 1+ in the right lower extremity. CENTRAL NERVOUS SYSTEM: No gross focal deficits noted. The patient is alert and oriented well. PSYCHIATRIC SYSTEM: The patient's mood is euthymic. No hallucinations or delusions. LABORATORY DATA: The pelvic x-ray done shows prior surgery with laminectomy in the distal lumbar spine. Sacroiliac joints are patent and symmetric. Bony pelvis was intact. H and H 10 and 32, platelet count 295, white count of 7, with 60% neutrophils. Potassium 3.1, serum bicarb 18, BUN 11, creatinine 0.6. Liver enzymes within normal limits. CRP is 5.1. Sedimentation rate is 98. Albumin is 3.7. Wound cultures from the right gluteal area is the Gram stain which shows gram-positive cocci in pairs and gram-negative rods. CLINICAL IMPRESSION AND PLAN: The patient will be admitted to med/surg floor for right gluteal abscess to rule out osteomyelitis. Dr. Owens and Dr. Brown have been consulted. The patient has multiple allergies and she apparently is not allergic to cefepime. She is placed on cefepime and vancomycin. We will follow up on the wound cultures drawn in the ER. I have spoken to Dr. Owens for possible debridement in the morning. We will obtain a pelvic MRI as well to rule out osteomyelitis. We will continue her Atripla for HIV along with aspirin, Lipitor, albuterol inhaler, Advair inhaler, Plavix, Flexeril, low-dose Lopressor , and Lyrica as before. Morphine p.r.n. for pain per patient request. She will be kept n.p.o. after midnight for possible debridement. Job ID: [id number] [facility]
[2019-03-01] MEDS: EMTRICITAB PO SCH (22:08)
[2019-03-01] MEDS: TENOFOVIR PO SCH (22:08)
[2019-03-01] MEDS: EFAVIRENZ PO SCH (22:08)
[2019-03-01] MEDS: Morphine 2 MG/ML SYRINGE SLOW IVP PRN (23:48)
[2019-03-02] MEDS ORDERED: Vancomycin HCl 1 GM in Premix Bag 1 BAG IVPB SCH (01:00)
[2019-03-02] MEDS: Cefepime 1 GM in Sodium Chloride 0.9% 100 ML IVPB SCH ×2 (03:12→16:38)
[2019-03-02] MEDS ORDERED: Cefepime 2 GM in Sodium Chloride 0.9% 100 ML IVPB SCH ×2 (04:00→05:00)
[2019-03-02] MEDS: diphenhydrAMINE 25 MG CAP PO PRN (05:30)
[2019-03-02] MEDS ORDERED: Vancomycin HCl 1.75 GM in Sodium Chloride 0.9% 500 ML IVPB SCH (06:00)
[2019-03-02 06:29] LABS: #Eosinphils 0.2 thou/uL (0.0-0.7); #Lymphocytes 0.9 thou/uL (1.20-3.40); #Monocytes 0.2 thou/uL (0.11-0.59); #Neutrophils 7.9 thou/uL (1.40-6.50); %Basophils 0.2 % (0.0-1.0); %Eosinophils 1.8 % (0.0-10.0); %Lymphocytes 9.5 % (21.0-51.0); %Monocytes 2.3 % (0.0-10.0); %Neutrophils 86.2 % (42.0-75.0); Mean Corpuscular HGB CONC 29.8 g/dL (32.0-36.0); Mean Corpuscular Hemoglobin 21.6 pg (27.0-31.0); Mean Corpuscular Volume 72.5 fL (78.0-98.0); Mean Platelet Volume 9.6 fL (7.4-10.4); Platelet Count 291 thou/uL (130-400); RBC Distribution Width 19.2 % (11.5-14.5); Red Blood Cell (RBC) Count 4.61 mill/uL (4.20-5.40); White Blood Cell (WBC) Count 9.2 thou/uL (4.8-10.8)
[2019-03-02 06:45] LABS: Anion Gap 11 mmol/L (10-20); BUN (Urea Nitrogen) 9 mg/dL (7.0-18.7); Calc. Creatinine Clearance 234 mL/min (70-130); Calcium 8.1 mg/dL (7.8-10.44); Carbon Dioxide 20 mmol/L (22-29); Chloride 106 mmol/L (98-107); Estimated GFR-MDRD Greater than 90; Glucose 97 mg/dL (70-105); Potassium 3.2 mmol/L (3.5-5.1); Sodium 134 mmol/L (136-145)
[2019-03-02] MEDS: Pregabalin 50 MG CAP PO SCH ×2 (09:01→20:04)
[2019-03-02] MEDS: FLUoxetine HCl 20 MG CAP PO SCH (09:01)
[2019-03-02] MEDS: Metoprolol Tartrate 25 MG TAB PO SCH (09:02)
[2019-03-02] MEDS: Atorvastatin Calcium 40 MG TAB PO SCH (09:02)
[2019-03-02] MEDS: Famotidine 20 MG TAB PO SCH ×2 (09:02→20:06)
[2019-03-02] MEDS: HYDROcodone/Acetaminophen 5/325 mg Tablet PO PRN ×3 (09:02→20:07)
--- NOTE | 2019-03-02 10:08 | PDOC.HOSPP ---
- Subjective Encounter Date: 03/02/19 Encounter Time: 09:00 Subjective: no pain, feels better is npo for possible debridement today - Objective Vital Signs & Weight: Vital Signs (12 hours) Temp Pulse Resp BP Pulse Ox 03/02/19 07:52 98.6 F 106 H 16 163/92 H 92 L 03/02/19 03:17 98.6 F 109 H 20 146/81 H 94 L 03/01/19 23:59 98.9 F 106 H 18 148/92 H 95 Weight Weight 259 lb 1.6 oz Result Diagrams: 03/02/19 06:18 03/02/19 06:18 ROS - Medication Medications: Active Medications Generic Name Dose Route Start Last Admin Trade Name Freq PRN Reason Stop Dose Admin Acetaminophen 650 mg 03/01/19 20:05 03/01/19 23:47 Tylenol PO 650 mg Q4H PRN Administration Headache/Fever/Mild Pain (1-3) Hydrocodone Bitart/Acetaminophen 1 tab 03/01/19 20:05 03/02/19 09:02 [place] 5/325 PO 1 tab Q4H PRN Administration Moderate Pain (4-6) Atorvastatin Calcium 40 mg 03/02/19 09:00 03/02/19 09:02 Lipitor PO 40 mg DAILY CAROL Administration Cyclobenzaprine HCl 5 mg 03/01/19 20:05 03/01/19 21:35 Flexeril PO 5 mg BID PRN Administration Muscle spasms Diphenhydramine HCl 25 mg 03/01/19 20:28 03/02/19 05:30 Benadryl PO 25 mg Q6H PRN Administration Itching & Insomnia Famotidine 20 mg 03/01/19 21:00 03/02/19 09:02 Pepcid PO 20 mg BID CAROL Administration Fluoxetine HCl 20 mg 03/02/19 09:00 03/02/19 09:01 Prozac PO 20 mg DAILY CAROL Administration Cefepime HCl 1 gm/ Sodium 100 mls @ 200 mls/hr 03/02/19 04:00 03/02/19 03:12 Chloride IVPB 100 mls 0400,1600 CAROL Administration Vancomycin HCl 1.75 gm/ Sodium 500 mls @ 250 mls/hr 03/02/19 06:00 03/02/19 07:31 Chloride IVPB 500 mls 0600,1800 CAROL Administration Metoprolol Tartrate 25 mg 03/02/19 09:00 03/02/19 09:02 Lopressor PO 25 mg DAILY CAROL Administration Morphine Sulfate 2 mg 03/01/19 20:05 03/01/19 23:48 Morphine SLOW IVP 2 mg Q4H PRN Administration Pain Efavirenz/Emtricitab 0 each 03/01/19 21:00 03/01/19 22:08 /Tenofovir [Atripla] PO 1 each 1 Tablet HS CAROL Administration Pregabalin 200 mg 03/01/19 21:00 03/02/19 09:01 Lyrica PO 200 mg BID CAROL Administration - Exam NAD, awake alert Eye: PERRL, anicteric sclera ENT: no oropharyngeal lesions, moist mucosa Neck: supple, no JVD Heart: RRR, no murmur Respiratory: no wheezes, no rales, rhonchi Gastrointestinal: soft, non-tender, non-distended, normal bowel sounds Extremities: no cyanosis Extremeties - other findings: right gluteal abscess in dressing, left bka Neurological: CN's grossly intact, no new deficit Psychiatric: normal affect, A&O x 3 Hosp A/P (1) Abscess, gluteal, right Code(s): L02.31 - CUTANEOUS ABSCESS OF BUTTOCK Status: Acute (2) HTN (hypertension) Code(s): I10 - ESSENTIAL (PRIMARY) HYPERTENSION Status: Chronic Qualifiers: Hypertension type: essential hypertension Qualified Code(s): I10 - Essential (primary) hypertension (3) CAD (coronary artery disease) Code(s): I25.10 - ATHSCL HEART DISEASE OF [place] CORONARY ARTERY W/O ANG PCTRS Status: Chronic Qualifiers: Coronary Disease-Associated Artery/Lesion type: [place] artery [place] vs. transplanted heart: [place] heart Associated angina: without angina Qualified Code(s): I25.10 - Atherosclerotic heart disease of [place] coronary artery without angina pectoris (4) Obesity Code(s): E66.9 - OBESITY, UNSPECIFIED Status: Chronic Qualifiers: Obesity classification: adult class 3 (BMI >= 40) Body mass index: BMI 45.0 -49.9 (5) Anxiety and depression Code(s): F41.9 - ANXIETY DISORDER, UNSPECIFIED; F32.9 - MAJOR DEPRESSIVE DISORDER, SINGLE EPISODE, UNSPECIFIED Status: Chronic (6) Asthma Code(s): J45.909 - UNSPECIFIED ASTHMA, UNCOMPLICATED Status: Chronic Qualifiers: Asthma severity: mild (7) Dyslipidemia Code(s): E78.5 - HYPERLIPIDEMIA, UNSPECIFIED Status: Chronic (8) HIV (human immunodeficiency virus infection) Status: Chronic (9) History of left below knee amputation Code(s): Z89.512 - ACQUIRED ABSENCE OF LEFT LEG BELOW KNEE Status: Chronic (10) Tobacco abuse Code(s): Z72.0 - TOBACCO USE Status: Chronic - Plan is on cefepime and vanc wound care, will look at the wound with wound care today MRI pelvis to r/o osteo, may dc if the wound probes to bone continue atripla, asp, plavix, lipitor, lopressor on norco, morphine prn, flexeril, lyrica to mobilize as tolerated to wheel chair hemostable
[2019-03-02] MEDS: Morphine 2 MG/ML SYRINGE SLOW IVP PRN ×2 (10:26→22:06)
[2019-03-02] MEDS: Enoxaparin Sodium 40 MG/0.4 ML SYRINGE SC SCH ×2 (10:27→10:31)
[2019-03-02] MEDS: Aspirin 325 MG TAB PO SCH (10:27)
[2019-03-02] MEDS: Clopidogrel Bisulfate 75 MG TAB PO SCH (10:27)
[2019-03-02] MEDS: Potassium Chloride 20 MEQ TAB PO SCH (17:49)
[2019-03-02] MEDS: EMTRICITAB PO SCH (20:06)
[2019-03-02] MEDS: EFAVIRENZ PO SCH (20:06)
[2019-03-02] MEDS: TENOFOVIR PO SCH (20:06)
--- NOTE | 2019-03-02 20:49 | CON ---
DATE OF CONSULTATION: REASON FOR CONSULTATION: Right buttock wound. HISTORY OF PRESENT ILLNESS: Ms. Frank is a 44-year-old woman, who uses a wheelchair to get around. She has had a prior BKA and has been fitted with prosthesis, but this was rubbing toward on her leg, so she is unable to use it. She states that she had a wound on her right gluteal area for a couple weeks. She describes it as being like a scrape, but then when her family member was helping her clean the area, she told her that there was a hole there and the patient felt it and realized that it was actually tunneling into the tissues beneath. She came to the emergency room, was admitted from there. She has had some headaches and some mild fever, but has otherwise been feeling fairly well. She does have chronic HIV, but states that she is following up regularly with her infectious disease specialist and her bile counts have been undetectable. PAST MEDICAL HISTORY: HIV; coronary artery disease, status post PA and angioplasty in her 30s; history of spinal tumor, which was benign; clubfoot; asthma; and hyperlipidemia. PAST SURGICAL HISTORY: Multiple operations on her foot; resection of spinal tumor; angioplasty, but no stent; cholecystectomy; left BKA, and MediPort. OUTPATIENT MEDICATIONS: Include aspirin, albuterol inhaler, atorvastatin, Plavix, Flexeril, Atripla, Prozac, Advair Diskus, metoprolol, and Lyrica. ALLERGIES: SHE HAS ALLERGIES TO ZOSYN, ACYCLOVIR, KEFLEX, IRON, FOLATE, AND FLU VACCINE. REVIEW OF SYSTEMS: Ten system review of systems is negative except per HPI. PHYSICAL EXAMINATION: VITAL SIGNS: The patient has been afebrile since her admission. Heart rate was up a little bit this morning, but it came back down. Respiratory rate 18, 93% saturated on room air, and blood pressure 161/80. GENERAL: Reveals a pleasant woman, in no acute distress. HEENT: Unremarkable. NECK: Supple without lymphadenopathy or thyroid nodules. HEART: Regular in its rate and rhythm without murmurs, rubs, or gallops. LUNGS: Clear to auscultation bilaterally, although breath sounds are distant. ABDOMEN: Soft, nontender, and nondistended. EXTREMITIES: She has 2 wounds on her left BKA stump, which appear partial-thickness and these are clean and granulating. She has minor abrasions on her right foot, which she states happen from striking the pool while doing water aerobics. NEURO: No focal deficit, although she has a history of neurogenic bladder and bowel and is chronically incontinent with an adult diaper in place. BACK: Her sacral wound has healed. SKIN: Intact, although there is a sizable soft tissue defect underlying the skin. On the right ischial area, there is a full-thickness wound extending down into the subcutaneous tissues. There is no necrotic tissue or infected tissue. The ischium is not exposed in the base of the wound. LABORATORY DATA: White count is normal, hematocrit 33, and platelets 291. Potassium is slightly low and bicarb is slightly low, but other electrolytes are unremarkable. Pelvic x-ray showed sequelae of previous surgery. ASSESSMENT: Right ischial decubitus ulcer. PLAN: Offloading and vacuum-assisted closure dressing. I will leave the decision regarding length and duration of antibiotic therapy to the patient's infectious disease specialist. There is no need for operative debridement at this time. I will follow with the Wound Care team while the patient is an inpatient. Job ID: [id number]
[2019-03-03] MEDS: Cefepime 1 GM in Sodium Chloride 0.9% 100 ML IVPB SCH ×2 (04:02→15:55)
[2019-03-03] MEDS: HYDROcodone/Acetaminophen 5/325 mg Tablet PO PRN ×3 (05:32→17:35)
--- NOTE | 2019-03-03 07:45 | CON ---
DATE OF CONSULTATION: 03/02/2019 REASON FOR CONSULTATION: Inflammatory changes, right thigh. HISTORY OF PRESENT ILLNESS: A 44-year-old known to me from multiple prior visits, who has a history of longstanding HIV infection with excellent adherence to anti-retroviral therapy and long-term viral suppression on Atripla. She also has a history of BKA left side following left foot infection with necrotizing features as well as a chronic ulcer at the tip of the left BKA which healed after extensive management. 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 She now has developed inflammatory process right thigh after injury from her old wheelchair that she is trying to get replaced, developed pain in the area of inflammatory change. The proximal thigh and gluteal region with an open wound. There was odor with increasing drainage. She was seen in the emergency room and I advised admission and some headaches, which resolved treatment. No visual symptoms, sore throat, odynophagia, or dysphagia. No respiratory symptoms. No abdominal pain. Voiding without difficulty. No diarrhea or constipation. PAST MEDICAL HISTORY: Longstanding HIV infection with excellent adherence to anti-retroviral therapy. Normal CD4 cell count and consistently suppressed viral load spinal tumor with weakness in lower extremities; necrotizing infection, left lower extremity, which led to BKA; asthma; coronary artery disease with angioplasty; cholecystectomy; ; bipolar disorder; Mediport placed because of difficult access due to multiple hospitalizations. MEDICATIONS: 1. Atripla. 2. Plavix. 3. Lipitor. 4. Flexeril. 5. Lyrica. 6. Prozac. 7. ProAir. 8. Motrin. 9. Currently on cefepime and vancomycin. SOCIAL HISTORY: Smokes daily. Drinks occasionally. FAMILY HISTORY: Diabetes and hypertension. PHYSICAL EXAMINATION: VITAL SIGNS: T-max of 98.9, blood pressure 120/60, pulse 81, respirations 16, and O2 saturation 94%. GENERAL: She is in no distress, oriented. Follows commands. SKIN: With the area of erythema, central area of blistering ulceration, medial post aspect of the right thigh. Erythema measures about 6 cm x 7 surrounding the central area, eruption of the epithelium. There was a dark yellow membrane covering about 50% of the base of the ulcer. The remainder has healthy pinkish granulation. No lymphadenopathy. HEENT: Noncontributory. NECK: Supple. LUNGS: Symmetric clear breath sounds. HEART: S1 and S2, regular rate without murmurs. No S3. ABDOMEN: Soft, not distended. No ascites. No bladder distention. Cognitive function appears to be intact. LABORATORY DATA: White cell count 7.1 and 9.2, hemoglobin 10, MCV 72, platelets 295 with normal differential. Sodium 139, creatinine 0.64. Liver profile normal. Albumin 3.7. Culture from the area with group B strep. ASSESSMENT: Longstanding human immunodeficiency virus infection, well controlled now with complications related to her disability with pressure ulceration and surrounding cellulitis. It does not appear that this is a deep penetrating lesion, so no abscess formation and no bone involvement, and no further imaging procedure is required for this admission. We will discontinue vancomycin, continue cefepime until final results of antimicrobial therapy and then discharge on oral Keflex plus wound care. Continue Atripla. Job ID: [id number] [facility]
[2019-03-03] MEDS ORDERED: Lidocaine 2% Jelly 5 ML TUBE TOP PRN (07:59)
[2019-03-03] MEDS: Aspirin 325 MG TAB PO SCH (08:31)
[2019-03-03] MEDS: Potassium Chloride 20 MEQ TAB PO SCH ×2 (08:31→17:35)
[2019-03-03] MEDS: Cyclobenzaprine 10 MG TAB PO PRN (08:31)
[2019-03-03] MEDS: Atorvastatin Calcium 40 MG TAB PO SCH (08:31)
[2019-03-03] MEDS: Clopidogrel Bisulfate 75 MG TAB PO SCH (08:31)
[2019-03-03] MEDS: Pregabalin 50 MG CAP PO SCH ×2 (08:32→21:08)
[2019-03-03] MEDS: Metoprolol Tartrate 25 MG TAB PO SCH (08:32)
[2019-03-03] MEDS: Enoxaparin Sodium 40 MG/0.4 ML SYRINGE SC SCH (08:33)
[2019-03-03] MEDS: FLUoxetine HCl 20 MG CAP PO SCH (08:33)
[2019-03-03] MEDS: Famotidine 20 MG TAB PO SCH ×2 (08:33→21:09)
[2019-03-03] MEDS: Morphine 2 MG/ML SYRINGE SLOW IVP PRN ×2 (10:45→19:44)
[2019-03-03] MEDS: PROVENTIL INHALER 6.7 G (200 INHALATIONS) INH PRN ×2 (12:27→21:22)
[2019-03-03] MEDS: TENOFOVIR PO SCH (21:12)
[2019-03-03] MEDS: EMTRICITAB PO SCH (21:12)
[2019-03-03] MEDS: EFAVIRENZ PO SCH (21:12)
--- NOTE | 2019-03-03 22:45 | PDOC.HOSPP ---
- Subjective Subjective: Doing well overall. Talking with CM. SHe is currently living in a motel. Looking for a house and waiting on housing assistance. - Objective Vital Signs & Weight: Vital Signs (12 hours) Temp Pulse Resp BP Pulse Ox 03/03/19 21:22 93 12 95 03/03/19 19:15 98.1 F 93 16 134/76 96 03/03/19 12:27 84 14 96 03/03/19 11:31 98.8 F 83 16 129/70 93 L Weight Admit Weight 259 lb 1.6 oz Weight 259 lb 1.6 oz I&O: 03/02/19 03/03/19 03/04/19 06:59 06:59 06:59 Intake Total 2550 2100 Output Total 4200 2150 Balance -1650 -50 Result Diagrams: 03/02/19 06:18 03/02/19 06:18 Hospitalist ROS - Medication Medications: Active Medications Generic Name Dose Route Start Last Admin Trade Name Freq PRN Reason Stop Dose Admin Acetaminophen 650 mg 03/01/19 20:05 03/01/19 23:47 Tylenol PO 650 mg Q4H PRN Administration Headache/Fever/Mild Pain (1-3) Hydrocodone Bitart/Acetaminophen 1 tab 03/01/19 20:05 03/03/19 17:35 [place] 5/325 PO 1 tab Q4H PRN Administration Moderate Pain (4-6) Albuterol Sulfate 2 puff 03/01/19 20:05 03/03/19 21:22 Proventil Hfa INH 2 puff Q6HR PRN Administration SOB &/or Wheezing Aspirin 325 mg 03/02/19 09:00 03/03/19 08:31 Aspirin PO 325 mg DAILY CAROL Administration Atorvastatin Calcium 40 mg 03/02/19 09:00 03/03/19 08:31 Lipitor PO 40 mg DAILY CAROL Administration Clopidogrel Bisulfate 75 mg 03/02/19 09:00 03/03/19 08:31 Plavix PO 75 mg DAILY CAROL Administration Cyclobenzaprine HCl 5 mg 03/01/19 20:05 03/03/19 08:31 Flexeril PO 5 mg BID PRN Administration Muscle spasms Diphenhydramine HCl 25 mg 03/01/19 20:28 03/02/19 05:30 Benadryl PO 25 mg Q6H PRN Administration Itching & Insomnia Enoxaparin Sodium 40 mg 03/02/19 09:00 03/03/19 08:33 Lovenox SC Not Given 0900 [facility] Famotidine 20 mg 03/01/19 21:00 03/03/19 21:09 Pepcid PO 20 mg BID CAROL Administration Fluoxetine HCl 20 mg 03/02/19 09:00 03/03/19 08:33 Prozac PO 20 mg DAILY CAROL Administration Cefepime HCl 1 gm/ Sodium 100 mls @ 200 mls/hr 03/02/19 04:00 03/03/19 15:55 Chloride IVPB 100 mls 0400,1600 CAROL Administration Metoprolol Tartrate 25 mg 03/02/19 09:00 03/03/19 08:32 Lopressor PO 25 mg DAILY CAROL Administration Morphine Sulfate 2 mg 03/01/19 20:05 03/03/19 19:44 Morphine SLOW IVP 2 mg Q4H PRN Administration Pain Efavirenz/Emtricitab 0 each 03/01/19 21:00 03/03/19 21:12 /Tenofovir [Atripla] PO 1 each 1 Tablet HS CAROL Administration Potassium Chloride 40 meq 03/02/19 17:00 03/03/19 17:35 K-Dur PO 03/04/19 08:01 40 meq BID-WM CAROL Administration Pregabalin 200 mg 03/01/19 21:00 03/03/19 21:08 Lyrica PO 200 mg BID CAROL Administration - Exam General Appearance: NAD General - other findings: Morbidly obese. Heart: RRR, no murmur, no gallops, no rubs, normal peripheral pulses Respiratory: CTAB, no wheezes, no rales, no ronchi, normal chest expansion, no tachypnea, normal percussion Gastrointestinal: soft, non-tender, non-distended, normal bowel sounds, no palpable masses, no hepatomegaly, no splenomegaly, no bruit Extremeties - other findings: Left AKA stump with small stable ulcer. Skin: normal turgor Musculoskeletal: normal tone Psychiatric: normal affect, normal behavior, A&O x 3 Hosp A/P (1) Abscess, gluteal, right Code(s): L02.31 - CUTANEOUS ABSCESS OF BUTTOCK Status: Acute (2) CAD (coronary artery disease) Code(s): I25.10 - ATHSCL HEART DISEASE OF [place] CORONARY ARTERY W/O ANG PCTRS Status: Chronic Qualifiers: Coronary Disease-Associated Artery/Lesion type: [place] artery [place] vs. transplanted heart: [place] heart Associated angina: without angina Qualified Code(s): I25.10 - Atherosclerotic heart disease of [place] coronary artery without angina pectoris (3) HTN (hypertension) Code(s): I10 - ESSENTIAL (PRIMARY) HYPERTENSION Status: Chronic Qualifiers: Hypertension type: essential hypertension Qualified Code(s): I10 - Essential (primary) hypertension (4) Obesity Code(s): E66.9 - OBESITY, UNSPECIFIED Status: Chronic Qualifiers: Obesity classification: adult class 3 (BMI >= 40) Body mass index: BMI 45.0 -49.9 (5) Cellulitis, leg Code(s): L03.119 - CELLULITIS OF UNSPECIFIED PART OF LIMB Status: Acute Qualifiers: Laterality: right Qualified Code(s): L03.115 - Cellulitis of right lower limb (6) Wound infection Code(s): T14.8XXA - OTHER INJURY OF UNSPECIFIED BODY REGION, INITIAL ENCOUNTER; L08.9 - LOCAL INFECTION OF THE SKIN AND SUBCUTANEOUS TISSUE, UNSP Status: Acute (7) Anxiety and depression Code(s): F41.9 - ANXIETY DISORDER, UNSPECIFIED; F32.9 - MAJOR DEPRESSIVE DISORDER, SINGLE EPISODE, UNSPECIFIED Status: Chronic (8) Asthma Code(s): J45.909 - UNSPECIFIED ASTHMA, UNCOMPLICATED Status: Chronic Qualifiers: Asthma severity: mild (9) HIV (human immunodeficiency virus infection) Status: Chronic (10) History of left below knee amputation Code(s): Z89.512 - ACQUIRED ABSENCE OF LEFT LEG BELOW KNEE Status: Chronic (11) Morbid obesity with BMI of 50.0-59.9, adult Code(s): E66.01 - MORBID (SEVERE) OBESITY DUE TO EXCESS CALORIES; Z68.43 - BODY MASS INDEX (BMI) 50-59.9, ADULT Status: Chronic - Plan Doing well. Will not need surgical intervention. Cultures are growing staph, strep and proteus. Can treat with oral abx. Has wound care team coming in the morning to change the dressing. Can DC home after dressing change. Will have OP WC clinic follow up and po abx.
[2019-03-04] MEDS: Cefepime 1 GM in Sodium Chloride 0.9% 100 ML IVPB SCH ×2 (04:08→16:20)
[2019-03-04] MEDS: Pregabalin 50 MG CAP PO SCH (08:20)
[2019-03-04] MEDS: HYDROcodone/Acetaminophen 5/325 mg Tablet PO PRN ×2 (08:20→13:51)
[2019-03-04] MEDS: Aspirin 325 MG TAB PO SCH (08:21)
[2019-03-04] MEDS: Atorvastatin Calcium 40 MG TAB PO SCH (08:21)
[2019-03-04] MEDS: FLUoxetine HCl 20 MG CAP PO SCH (08:21)
[2019-03-04] MEDS: Clopidogrel Bisulfate 75 MG TAB PO SCH (08:21)
[2019-03-04] MEDS: Famotidine 20 MG TAB PO SCH (08:21)
[2019-03-04] MEDS: Metoprolol Tartrate 25 MG TAB PO SCH (08:21)
[2019-03-04] MEDS: Potassium Chloride 20 MEQ TAB PO SCH (08:21)
[2019-03-04] MEDS: Enoxaparin Sodium 40 MG/0.4 ML SYRINGE SC SCH (08:22)
[2019-03-04] MEDS: Morphine 2 MG/ML SYRINGE SLOW IVP PRN ×2 (11:05→16:19)
[2019-03-04] MEDS: PROVENTIL INHALER 6.7 G (200 INHALATIONS) INH PRN (11:12)
[2019-03-04 16:30] VITALS: BP 132/94; TEMP 98
--- NOTE | 2019-03-04 16:36 | PRG ---
DATE OF SERVICE: 03/04/2019 SUBJECTIVE: Feeling better. Has a negative-pressure dressing over the wound, right inner thigh. No respiratory symptoms. OBJECTIVE: VITAL SIGNS: T-max 98. Other vital signs are fairly normal. BP is little high at 153 systolic. GENERAL: Awake, alert, and oriented. LUNGS: Clear. HEART: S1, S2, regular rate. EXTREMITIES: Right thigh with negative-pressure dressing. The erythema has resolved. LABORATORY DATA: White cell count is 9.2, hemoglobin 10, platelets 291. Creatinine 0.57. CRP 5.1. Culture from the wound area with group B strep, Staph aureus and Proteus mirabilis. Staph aureus is methicillin sensitive. ASSESSMENT AND PLAN: Longstanding human immunodeficiency virus infection, well controlled with paraplegia and below knee amputation left side, and injury to the right posterior thigh from her old wheelchair with a superficial abscess, status post I and D. Discharge planning on oral Keflex for a few days. She is not truly allergic to cephalosporins. She has received them in the past without any issues. Job ID: [id number]
== END 2019-03-04 17:45 | disposition home or self-care (01) | DRG 603 ==
LOC: ERS 14:40 → SURG A 18:42
PROVIDERS: ADMIT Internal Medicine; ATTEND Internal Medicine
DX: L02.31 Cutaneous abscess of buttock (principal); Z68.42 Body mass index [BMI] 45.0-49.9, adult; L89.319 Pressure ulcer of right buttock, unspecified stage; F41.9 Anxiety disorder, unspecified; I25.10 Atherosclerotic heart disease of native coronary artery without angina pectoris; J45.909 Unspecified asthma, uncomplicated; E78.5 Hyperlipidemia, unspecified; Z21 Asymptomatic human immunodeficiency virus [HIV] infection status; F31.9 Bipolar disorder, unspecified; E66.01 Morbid (severe) obesity due to excess calories; Z89.512 Acquired absence of left leg below knee; Z79.02 Long term (current) use of antithrombotics/antiplatelets; Z79.899 Other long term (current) drug therapy
CPT/HCPCS: 27301; 36415; 72170; 80048; 80053; 85025; 85652; 86140; 87040; 87070; 87077; 87186; 87205; 96365; 96375; J0692; J1642; J1650; J2270; J3370; J3490; J7050; Q0163

== ENCOUNTER 2019-03-10 16:32 | Emergency (ER) | payer MEDICARE ==
[2019-03-10 17:35] LABS: #Basophils 0.1 thou/uL (0.0-0.2); #Eosinphils 0.1 thou/uL (0.0-0.7); #Lymphocytes 2.4 thou/uL (1.20-3.40); #Monocytes 0.3 thou/uL (0.11-0.59); #Neutrophils 6.1 thou/uL (1.40-6.50); %Basophils 0.6 % (0.0-1.0); %Eosinophils 1.4 % (0.0-10.0); %Lymphocytes 27.1 % (21.0-51.0); %Monocytes 3.7 % (0.0-10.0); %Neutrophils 67.2 % (42.0-75.0); Mean Corpuscular HGB CONC 30.5 g/dL (32.0-36.0); Mean Corpuscular Hemoglobin 22.4 pg (27.0-31.0); Mean Corpuscular Volume 73.3 fL (78.0-98.0); Mean Platelet Volume 8.7 fL (7.4-10.4); Platelet Count 389 thou/uL (130-400); RBC Distribution Width 18.7 % (11.5-14.5); Red Blood Cell (RBC) Count 4.94 mill/uL (4.20-5.40)
[2019-03-10 17:57] LABS: ALT (SGPT) 13 U/L (8-55); AST (SGOT) 10 U/L (5-34); Albumin 3.9 g/dL (3.5-5.0); Alkaline Phosphatase 94 U/L (40-150); Anion Gap 16 mmol/L (10-20); BUN (Urea Nitrogen) 11 mg/dL (7.0-18.7); Bilirubin, Total 0.2 mg/dL (0.2-1.2); Calc. Creatinine Clearance 0 mL/min (70-130); Calcium 9.1 mg/dL (7.8-10.44); Carbon Dioxide 18 mmol/L (22-29); Chloride 106 mmol/L (98-107); Estimated GFR-MDRD Greater than 90; Glucose 97 mg/dL (70-105); Potassium 3.3 mmol/L (3.5-5.1); Protein, Total 7.9 g/dL (6.0-8.3); Sodium 137 mmol/L (136-145)
== END 2019-03-10 20:32 | disposition home or self-care (01) ==
LOC: ERS 16:32
DX: T81.89XA Other complications of procedures, not elsewhere classified, initial encounter (principal); B20 Human immunodeficiency virus [HIV] disease; J45.909 Unspecified asthma, uncomplicated; F32.9 Major depressive disorder, single episode, unspecified; F41.9 Anxiety disorder, unspecified; F17.210 Nicotine dependence, cigarettes, uncomplicated; Z79.899 Other long term (current) drug therapy; Z79.82 Long term (current) use of aspirin
CPT/HCPCS: 36415; 80053; 85025; 99283

== ENCOUNTER 2019-03-11 14:06 | Outpatient (CLI) | payer MEDICARE ==
[~2019-03-11 14:06] MED LIST: Sodium Chloride 0.9% 15 ML NEB ONE
== END 2019-03-11 14:07 | disposition home or self-care (01) ==
LOC: WCC 14:06
PROVIDERS: ATTEND Family Medicine
DX: S31.819D Unspecified open wound of right buttock, subsequent encounter (principal); S81.809D Unspecified open wound, unspecified lower leg, subsequent encounter
CPT/HCPCS: 97605; A4218

== ENCOUNTER 2019-03-16 14:58 | Outpatient (CLI) | payer MEDICARE | END 2019-03-16 14:59 | disposition home or self-care (01) | LOC: WCC 14:58 | PROVIDERS: ATTEND Family Medicine | DX: L89.319 Pressure ulcer of right buttock, unspecified stage (principal) | CPT/HCPCS: 97605 ==

== ENCOUNTER 2024-06-23 09:05 | Inpatient (IN) | payer MEDICARE, OTHER ==
[2024-06-23 09:44] LABS: Actual Bicarbonate (HCO3v) 21.9 mEq/L (22-28); Base Excess -2.5 mEq/L (-2.0 to +3.0); Calcium, Ionized (venous) 0.96 mmol/L (1.16-1.32); Chloride (VBG) 101 mmol/L (98-106); Hematocrit-VBG 31 % (36.0-47.0); Hemoglobin (Hb) 10.6 g/dL (11.7-16.0); Sodium 136 mmol/L (133-146); pH (venous) 7.397 (7.32-7.43)
[2024-06-23 10:11] LABS: Anion Gap 14 mmol/L (10-20); BUN (Urea Nitrogen) 11 mg/dL (7.0-18.7); Bilirubin, Total 0.6 mg/dL (0.2-1.2); Calc. Creatinine Clearance 0 mL/min (70-130); Calcium 7.6 mg/dL (7.8-10.44); Carbon Dioxide 21 mmol/L (22-29); Chloride 102 mmol/L (98-107); Estimated GFR 104; Glucose 130 mg/dL (70-105); Potassium 3.3 mmol/L (3.5-5.1); Sodium 134 mmol/L (136-145)
[2024-06-23 10:12] LABS: Hematocrit 31.5 % (36.0-47.0); Hemoglobin 9.1 g/dL (12.0-16.0); Mean Corpuscular HGB CONC 28.9 g/dL (32.0-36.0); Mean Corpuscular Hemoglobin 24.6 pg (27.0-31.0); Mean Corpuscular Volume 85.1 fL (78.0-98.0); Mean Platelet Volume 9.2 fL (7.4-10.4); Platelet Count 174 10x3/uL (130-400); RBC Distribution Width 22.5 % (11.5-14.5)
[2024-06-23 10:12] LABS: ALT (SGPT) 23 U/L (8-55); AST (SGOT) 17 U/L (5-34); Albumin 3.2 g/dL (3.5-5.0); Alkaline Phosphatase 197 U/L (40-110); Globulin 3.9 g/dL (2.4-3.5); Protein, Total 7.1 g/dL (6.0-8.3)
[2024-06-23] MEDS ORDERED: cefTRIAXone (ROCEPHIN) 2 GM VIAL ONE (10:29)
[2024-06-23] MEDS ORDERED: Azithromycin 500 MG VIAL ONE (10:29)
[2024-06-23] MEDS ORDERED: Ketorolac Tromethamine 30 MG (1 mL) VIAL ONE (10:29)
[2024-06-23] MEDS ORDERED: Sodium Chloride 0.9% 100 ML ONE (10:29)
[2024-06-23 10:43] LABS: Troponin I Less than 0.010 ng/mL (< 0.028)
[2024-06-23] MEDS ORDERED: Vancomycin (BATCH) 2 GM/500 ML BAG ONE (10:46)
[2024-06-23] MEDS ORDERED: Ondansetron PF 4 MG/2 ML Vial ONE (10:47)
[2024-06-23] MEDS ORDERED: Piperacillin/Tazobactam 4.5 GM VIAL ONE (10:47)
[2024-06-23 11:07] LABS: Anisocytosis SLIGHT = 6-15 cells HPF (0-5); Band 9 % (5-11); Hypersegmented Neutrophil SLIGHT (None Seen); Hypochromia SLIGHT = 6-15 cells HPF (0-5); Lymphocytes 12 % (21-51); Monocytes 1 % (0-10); Neutrophil 78 % (42-75); Nucleated RBC (Manual Ct) 1 % (0); Ovalocytes SLIGHT = 2-5 cells HPF (0-1); Platelet Adequacy Comment Platelets Normal; Polychromasia SLIGHT = 2-3 cells HPF (0-2)
[2024-06-23] MEDS ORDERED: Calcium Carbonate 500 MG ChewTAB PO PRN (12:30)
[2024-06-23] MEDS ORDERED: Ondansetron ODT 4 MG TAB PO PRN (12:30)
[2024-06-23] MEDS ORDERED: Nicotine 14 MG PATCH TD PRN (12:30)
[2024-06-23] MEDS ORDERED: Acetaminophen 650 MG Suppository PR PRN (12:30)
[2024-06-23] MEDS ORDERED: Ondansetron PF 4 MG/2 ML Vial IVP PRN (12:30)
[2024-06-23] MEDS ORDERED: Benzonatate 100 MG CAP PO PRN (12:34)
[2024-06-23] MEDS ORDERED: Electrolyte Replacement Protocol 1 EACH FS SCH (12:45)
[2024-06-23 13:11] LABS: Lactic Acid 1.47 mmol/L (0.5-2.2)
[2024-06-23 13:19] LABS: Bacteria/HPF None Seen HPF (None Seen); Bilirubin Negative (Negative); Blood, Urine Negative (Negative); CAUTI Indications for Culture Pregnancy; Clarity Clear (Clear); Glucose, Urine (Dipstick) Normal (Negative); Ketone, Urine Negative (Negative); Leukocyte Negative Leu/uL (Negative); Nitrite Negative (Negative); Protein, Urine (Dipstick) Negative (Neg-Trace); RBC/HPF None Seen HPF (0-3); Specific Gravity, Urine 1.014 (1.002-1.036); Squamous Epithelial 0-3 HPF (0-3); Urobilinogen Normal mg/dL (Less than 2); WBC/HPF None Seen HPF (0-3)
[2024-06-23 13:22] LABS: Urine Culture Reflex Yes Yes
[2024-06-23 13:26] LABS: Magnesium 1.8 mg/dL (1.6-2.6)
[2024-06-23] MEDS ORDERED: Iopamidol-370 76% 500 ML MDV (1 ML CHARGE) ONE (13:50)
[2024-06-23] MEDS ORDERED: Electrolyte Replacement Protocol FS PRN (14:15)
[2024-06-23] MEDS: Ipratropium/Albuterol 3 ML NEB NEB SCH (14:27)
[2024-06-23 14:42] VITALS: BMI 73.1
[2024-06-23] MEDS: Piperacillin/Tazobactam 4.5 GM in Sodium Chloride 0.9% 100 ML IVPB SCH (16:29)
[2024-06-23] MEDS: Ipratropium/Albuterol 3 ML NEB NEB PRN (16:42)
[2024-06-23] MEDS: Ketorolac Tromethamine 30 MG (1 mL) VIAL IVP PRN (18:25)
[2024-06-23] MEDS: Magnesium 2 GM/50 ML(in water) 2 GM in Premix 1 BAG IVPB SCH (20:58)
[2024-06-23] MEDS: Atorvastatin Calcium 40 MG TAB PO SCH (20:59)
[2024-06-23] MEDS: Acetaminophen 325 MG TAB PO PRN (20:59)
[2024-06-23] MEDS ORDERED: Vancomycin 1 GM in Premix 1 BAG IVPB SCH (21:00)
[2024-06-23] MEDS: Famotidine/PF 20 mg/2ml Vial SLOW IVP SCH (21:00)
[2024-06-23] MEDS: Piperacillin/Tazobactam 3.375 GM in Sodium Chloride 0.9% 100 ML IVPB SCH (21:25)
[2024-06-23 23:32] LABS: Legionella Urinary Ag Negative (Negative); Strep pneumo Urine Ag NEGATIVE (NEGATIVE)
[2024-06-24] MEDS: Vancomycin (BATCH) 1.75 GM in Premix 1 BAG IVPB SCH (00:35)
[2024-06-24 06:05] LABS: #Basophils Less than 0.03 10x3/uL (0.0-0.2); %Basophils 0.2 % (0.0-1.0); %Eosinophils 0.3 % (0.0-10.0); %Lymphocytes 10.8 % (21.0-51.0); %Monocytes 3.3 % (0.0-10.0); %Neutrophils 84.7 % (42.0-75.0); Hematocrit 28.8 % (36.0-47.0); Hemoglobin 8.2 g/dL (12.0-16.0); Mean Corpuscular HGB CONC 28.5 g/dL (32.0-36.0); Mean Corpuscular Hemoglobin 24.7 pg (27.0-31.0); Mean Corpuscular Volume 86.7 fL (78.0-98.0); Mean Platelet Volume 9.1 fL (7.4-10.4); Platelet Count 133 10x3/uL (130-400); RBC Distribution Width 22.8 % (11.5-14.5); Red Blood Cell (RBC) Count 3.32 mill/uL (4.20-5.40)
[2024-06-24 06:31] LABS: Anisocytosis SLIGHT = 6-15 cells HPF (0-5); Hypochromia SLIGHT = 6-15 cells HPF (0-5); Platelet Adequacy Comment Platelets Normal; Polychromasia SLIGHT = 2-3 cells HPF (0-2)
[2024-06-24 07:04] LABS: ALT (SGPT) 20 U/L (8-55); AST (SGOT) 14 U/L (5-34); Albumin 2.7 g/dL (3.5-5.0); Alkaline Phosphatase 164 U/L (40-110); Anion Gap 12 mmol/L (10-20); BUN (Urea Nitrogen) 10 mg/dL (7.0-18.7); Bilirubin, Total 0.5 mg/dL (0.2-1.2); Calc. Creatinine Clearance 309 mL/min (70-130); Calcium 7.2 mg/dL (7.8-10.44); Carbon Dioxide 22 mmol/L (22-29); Chloride 108 mmol/L (98-107); Estimated GFR 109; Globulin 3.1 g/dL (2.4-3.5); Glucose 128 mg/dL (70-105); Potassium 3.4 mmol/L (3.5-5.1); Protein, Total 5.8 g/dL (6.0-8.3); Sodium 139 mmol/L (136-145)
[2024-06-24 07:08] LABS: Vancomycin, Random 28.9 ug/mL (See Comment)
[2024-06-24] MEDS: FLUoxetine HCl 10 MG CAP PO SCH (09:37)
[2024-06-24] MEDS: Enoxaparin 40 MG (0.4 mL) SYRINGE SC SCH (09:37)
[2024-06-24] MEDS: Potassium Bicarbonate/Cit Ac 20 MEQ TAB PO SCH (09:38)
[2024-06-24] MEDS: [UNRECOGNIZED DRUG - OTHER] PO SCH (09:38)
[2024-06-24] MEDS: Aspirin 81 mg Enteric Coated Tablet PO SCH (09:38)
[2024-06-24 11:09] LABS: Campy jejuni + coli by PCR Negative (Negative); STEC Shiga Toxin 1+2 Negative (Negative); Salmonella spp. by PCR Negative (Negative); Shigella spp + EIEC by PCR Negative (Negative)
[2024-06-24 13:09] VITALS: BMI 73.1
[2024-06-24] MEDS: methylPREDNISolone Sod Succ 40 MG VIAL IVP SCH (14:11)
[2024-06-24] MEDS: Ipratropium/Albuterol 3 ML NEB NEB SCH (14:57)
[2024-06-24] MEDS: Famotidine 20 MG TAB PO SCH (21:23)
[2024-06-24] MEDS: VANCOMYCIN 1.25 GM/250 ML BAG 1.25 GM in Premix 1 BAG IVPB SCH (22:47)
[2024-06-25] MEDS: Vancomycin (BATCH) 1.25 GM in Premix 1 BAG IVPB SCH (12:31)
[2024-06-26] MEDS: predniSONE 20 MG TAB PO SCH (08:17)
[2024-06-26] MEDS: Cefdinir 300 MG CAP PO SCH (08:17)
[2024-06-26 12:46] VITALS: BP 138/65; TEMP 98.1
== END 2024-06-26 13:35 | disposition home or self-care (01) | DRG 194 ==
LOC: ERS 09:05 → T4-B 14:19
PROVIDERS: ADMIT Internal Medicine; ATTEND Internal Medicine
DX: J18.9 Pneumonia, unspecified organism (principal); J45.901 Unspecified asthma with (acute) exacerbation; Z68.45 Body mass index [BMI] 70 or greater, adult; I10 Essential (primary) hypertension; E78.5 Hyperlipidemia, unspecified; I25.10 Atherosclerotic heart disease of native coronary artery without angina pectoris; Z21 Asymptomatic human immunodeficiency virus [HIV] infection status; F39 Unspecified mood [affective] disorder; N31.9 Neuromuscular dysfunction of bladder, unspecified; D63.8 Anemia in other chronic diseases classified elsewhere; F17.210 Nicotine dependence, cigarettes, uncomplicated; E87.6 Hypokalemia; E66.01 Morbid (severe) obesity due to excess calories; G47.33 Obstructive sleep apnea (adult) (pediatric); Z88.0 Allergy status to penicillin; Z88.8 Allergy status to other drugs, medicaments and biological substances; Z88.7 Allergy status to serum and vaccine; I25.2 Old myocardial infarction; Z90.49 Acquired absence of other specified parts of digestive tract; Z89.512 Acquired absence of left leg below knee
CPT/HCPCS: 36415; 71045; 71275; 80053; 80202; 81001; 82805; 83605; 83735; 84484; 85025; 87040; 87081; 87086; 87428; 87449; 87505; 87899; 93005; 94640; 94760; 96374; 96375; 97139; J0456; J0696; J1650; J1885; J2405; J2543; J2919; J3370; J3475; J3490; J7512; J7620; Q9967

== ENCOUNTER 2025-06-01 10:52 | Outpatient (CLI) | payer MEDICARE ==
[2025-06-01 12:08] LABS: #Basophils 0.04 10x3/uL (0.0-0.2); #Eosinophils 0.13 10x3/uL (0.0-0.7); #Monocytes 0.28 10x3/uL (0.11-0.59); #Neutrophils 2.98 10x3/uL (1.40-6.50); %Basophils 0.7 % (0.0-1.0); %Eosinophils 2.3 % (0.0-10.0); %Lymphocytes 40.2 % (21.0-51.0); %Monocytes 4.9 % (0.0-10.0); %Neutrophils 51.7 % (42.0-75.0); Hematocrit 33.4 % (36.0-47.0); Hemoglobin 9.0 g/dL (12.0-16.0); Mean Corpuscular Hemoglobin 22.6 pg (27.0-31.0); Mean Corpuscular Volume 83.9 fL (78.0-98.0); Platelet Count 255 10x3/uL (130-400); Red Blood Cell (RBC) Count 3.98 mill/uL (4.20-5.40); White Blood Cell (WBC) Count 5.75 10x3/uL (4.8-10.8)
[2025-06-01 12:21] LABS: INR-International Normal Ratio 1.1; PTT 33.5 sec (22.9-36.1); Prothrombin Time 14.4 sec (12.0-14.7)
[2025-06-01 12:24] LABS: Anion Gap 15 mmol/L (10-20); BUN (Urea Nitrogen) 11 mg/dL (7.0-18.7); Calc. Creatinine Clearance 0 mL/min (70-130); Calcium 8.8 mg/dL (7.8-10.44); Carbon Dioxide 18 mmol/L (22-29); Chloride 113 mmol/L (98-107); Glucose 97 mg/dL (70-105); Potassium 4.2 mmol/L (3.5-5.1); Sodium 142 mmol/L (136-145)
[2025-06-01 12:37] LABS: Anisocytosis SLIGHT = 6-15 cells HPF (0-5); BHCG - Serum Negative (NEGATIVE); Burr Cells SLIGHT = 2-5 cells HPF (0-1); Macrocytosis SLIGHT = 6-15 cells HPF (0-5); Microcytosis SLIGHT = 6-15 cells HPF (0-5); Ovalocytes SLIGHT = 2-5 cells HPF (0-1); Platelet Adequacy Comment Platelets Normal; Polychromasia SLIGHT = 2-3 cells HPF (0-2); Pregs Control Background? CLEAR/WHITE (CLR/WHITE); Pregs Control Bar Appear? YES (CONTROL BAR)
== END 2025-06-01 10:53 | disposition home or self-care (01) ==
LOC: LABBT 10:52
PROVIDERS: ATTEND Urology
DX: Z01.818 Encounter for other preprocedural examination (principal); N20.0 Calculus of kidney
CPT/HCPCS: 80048; 84703; 85025; 85610; 85730; 93005; 93010

== ENCOUNTER 2025-06-07 07:16 | Day surgery (SDC) | payer MEDICARE ==
[2025-06-01 11:08] VITALS: BMI 52.1
[2025-06-07] MEDS ORDERED: LevoFLOXacin D5W 500 mg (100 mL) BAG ONE (09:38)
[2025-06-07] MEDS ORDERED: fentaNYL PF 100 MCG/2 ML SYRINGE ONE (09:56)
[2025-06-07] MEDS ORDERED: PROPOFOL 200 MG/20 ML VIAL ONE (10:22)
[2025-06-07] MEDS ORDERED: Rocuronium Bromide 10 MG/ML (10ML VIAL) ONE (10:22)
[2025-06-07] MEDS ORDERED: Ondansetron PF 4 MG/2 ML Vial ONE (10:28)
[2025-06-07] MEDS ORDERED: SUGAMMADEX SODIUM 200 MG/2 ML VIAL ONE (10:29)
[2025-06-07] MEDS ORDERED: PHENYLEPHRINE-NS 100 MCG/ML 10 ML SYRINGE ONE (10:42)
[2025-06-07] MEDS ORDERED: Oxybutynin 5 MG TAB ONE (12:24)
== END 2025-06-07 14:25 | disposition home or self-care (01) ==
LOC: SDC 07:16
PROVIDERS: ATTEND Urology
PROC: 0TC78ZZ Extirpation of Matter from Left Ureter, Via Natural or Artificial Opening Endoscopic (ICD-10-PCS; principal; 2025-06-07)
DX: N13.2 Hydronephrosis with renal and ureteral calculous obstruction (principal); I10 Essential (primary) hypertension; Z79.899 Other long term (current) drug therapy; Z88.7 Allergy status to serum and vaccine; Z91.048 Other nonmedicinal substance allergy status; Z88.1 Allergy status to other antibiotic agents; Z88.8 Allergy status to other drugs, medicaments and biological substances
CPT/HCPCS: 74420; 82365; 82962; C1747; C1758; C1769 ×2; C2617; C9761; J0290; J1100; J1956; J2405; J2704; Q9967; 36416; 88300; J2250